=== PATIENT | female | born 1955 | race Caucasian/White ===

== ENCOUNTER 2019-07-21 12:22 | Inpatient (IN) | payer BC, OTHER ==
[2019-07-21] MEDS ORDERED: METOCLOPRAMIDE 5 MG/ML 2 ML VIAL IVP STA (12:51)
[2019-07-21] MEDS ORDERED: DIAZEPAM 5 MG/ML 2 ML INJ IVP STA (12:51)
[2019-07-21] MEDS ORDERED: MECLIZINE 25 MG TAB PO STA (12:51)
[2019-07-21] MEDS ORDERED: SODIUM CHLORIDE 0.9% 1,000 ML IV ONE ×2 (12:52→14:24)
--- NOTE | 2019-07-21 13:03 | ED ---
General Adult HPI - General Chief complaint: Weakness Stated complaint: Vertigo Time Seen by Provider: 07/21/19 12:25 Source: patient, EMS, RN notes reviewed, old records reviewed Mode of arrival: EMS Limitations: no limitations - History of Present Illness Initial comments: This is a 63-year-old female who presents emergency department with past medical history significant for TIA. Patient states today she was laying in bed and felt fine when she sat up the whole room started to spin and she became very nauseated and couldn't move without getting more dizzy. Patient states closer eyes doesn't help. Patient denies any headache. Patient denies any focal weakness or numbness. Patient denies any visual disturbance. Patient denies any speech disturbance. Patient denies any chest pain palpitations difficulty breathing first breath per patient denies any recent fever chills or cough. Patient denies abdominal pain patient denies nausea vomiting diarrhea. - Related Data Home Medications Medication Instructions Recorded Confirmed Diazepam [Valium] 5 mg PO HS 07/21/19 07/21/19 amLODIPine [Norvasc] 5 mg PO DAILY 07/21/19 07/21/19 Allergies Allergy/AdvReac Type Severity Reaction Status Date / Time latex Allergy Rash/Hives Verified 07/21/19 13:28 codeine AdvReac Vomiting Verified 07/21/19 13:28 Review of Systems ROS Statement: Those systems with pertinent positive or pertinent negative responses have been documented in the HPI. ROS Other: All systems not noted in ROS Statement are negative. Past Medical History Past Medical History: CVA/TIA, Hyperlipidemia, Hypertension Past Surgical History: Back Surgery Additional Past Surgical History / Comment(s): 4& 5 lumbar Smoking Status: Current every day smoker Past Alcohol Use History: None Reported Past Drug Use History: Marijuana General Exam - General Exam Comments Initial Comments: GENERAL: Patient is well-developed and well-nourished. Patient is nontoxic and well- hydrated and is in mild distress. ENT: Neck is soft and supple. No significant lymphadenopathy is noted. Oropharynx is clear. Moist mucous membranes. Neck has full range of motion without eliciting any pain. EYES: The sclera were anicteric and conjunctiva were pink and moist. Extraocular movements were intact and pupils were equal round and reactive to light. Eyelids were unremarkable. PULMONARY: Unlabored respirations. Good breath sounds bilaterally. No audible rales rhonchi or wheezing was noted. CARDIOVASCULAR: There is a regular rate and rhythm without any murmurs gallops or rubs. ABDOMEN: Soft and nontender with normal bowel sounds. SKIN: Skin is clear with no lesions or rashes and otherwise unremarkable. NEUROLOGIC: Patient is alert and oriented x3. Cranial nerves II through XII are grossly intact. Motor and sensory are also intact. Normal speech, volume and content. Symmetrical smile. Cerebellar testing finger to nose was normal bilaterally MUSCULOSKELETAL: Normal extremities with adequate strength and full range of motion. No lower extremity swelling or edema. No calf tenderness. LYMPHATICS: No significant lymphadenopathy is noted PSYCHIATRIC: Normal psychiatric evaluation. Limitations: no limitations Course Vital Signs 07/21/19 12:24 Temperature 98.5 F Pulse Rate 63 Respiratory 20 Rate Blood Pressure 143/73 O2 Sat by Pulse 100 Oximetry Medical Decision Making - Medical Decision Making EKG shows sinus bradycardia 56 bpm SC interval is 172 QRS is 88 QT interval 436 QTC is 420. Patient's EKG shows no ST segment elevation or depression. Patient got Reglan for the nausea. Patient got Antivert and Valium for the vertigo. Patient was unable to even sit up in bed. CT of the brain shows no acute abnormality. - Lab Data Result diagrams: 07/21/19 12:40 07/21/19 12:40 Lab Results 07/21/19 07/21/19 07/21/19 Range/Units 12:40 12:40 12:40 WBC 5.1 (3.8-10.6) k/uL RBC 4.92 (3.80-5.40) m/uL Hgb 13.6 (11.4-16.0) gm/dL Hct 43.2 (34.0-46.0) % MCV 87.8 (80.0-100.0) fL MCH 27.6 (25.0-35.0) pg MCHC 31.5 (31.0-37.0) g/dL RDW 13.1 (11.5-15.5) % Plt Count 160 (150-450) k/uL Neutrophils % 63 % Lymphocytes % 26 % Monocytes % 5 % Eosinophils % 4 % Basophils % 1 % Neutrophils # 3.2 (1.3-7.7) k/uL Lymphocytes # 1.3 (1.0-4.8) k/uL Monocytes # 0.2 (0-1.0) k/uL Eosinophils # 0.2 (0-0.7) k/uL Basophils # 0.0 (0-0.2) k/uL PT 11.1 (9.0-12.0) sec INR 1.1 (<1.2) APTT 22.5 (22.0-30.0) sec Sodium 139 (137-145) mmol/L Potassium 4.3 (3.5-5.1) mmol/L Chloride 109 H (98-107) mmol/L Carbon Dioxide 24 (22-30) mmol/L Anion Gap 6 mmol/L BUN 13 (7-17) mg/dL Creatinine 0.50 L (0.52-1.04) mg/dL Est GFR (CKD-EPI)AfAm >90 (>60 ml/min/1.73 sqM) Est GFR (CKD-EPI)NonAf >90 (>60 ml/min/1.73 sqM) Glucose 89 (74-99) mg/dL Calcium 9.8 (8.4-10.2) mg/dL Magnesium 1.9 (1.6-2.3) mg/dL Total Bilirubin 0.5 (0.2-1.3) mg/dL AST 50 H (14-36) U/L ALT 10 (4-34) U/L Alkaline Phosphatase 58 (38-126) U/L Troponin I (0.000-0.034) ng/mL Total Protein 6.9 (6.3-8.2) g/dL Albumin 4.1 (3.5-5.0) g/dL 07/21/19 Range/Units 12:40 WBC (3.8-10.6) k/uL RBC (3.80-5.40) m/uL Hgb (11.4-16.0) gm/dL Hct (34.0-46.0) % MCV (80.0-100.0) fL MCH (25.0-35.0) pg MCHC (31.0-37.0) g/dL RDW (11.5-15.5) % Plt Count (150-450) k/uL Neutrophils % % Lymphocytes % % Monocytes % % Eosinophils % % Basophils % % Neutrophils # (1.3-7.7) k/uL Lymphocytes # (1.0-4.8) k/uL Monocytes # (0-1.0) k/uL Eosinophils # (0-0.7) k/uL Basophils # (0-0.2) k/uL PT (9.0-12.0) sec INR (<1.2) APTT (22.0-30.0) sec Sodium (137-145) mmol/L Potassium (3.5-5.1) mmol/L Chloride (98-107) mmol/L Carbon Dioxide (22-30) mmol/L Anion Gap mmol/L BUN (7-17) mg/dL Creatinine (0.52-1.04) mg/dL Est GFR (CKD-EPI)AfAm (>60 ml/min/1.73 sqM) Est GFR (CKD-EPI)NonAf (>60 ml/min/1.73 sqM) Glucose (74-99) mg/dL Calcium (8.4-10.2) mg/dL Magnesium (1.6-2.3) mg/dL Total Bilirubin (0.2-1.3) mg/dL AST (14-36) U/L ALT (4-34) U/L Alkaline Phosphatase (38-126) U/L Troponin I <0.012 (0.000-0.034) ng/mL Total Protein (6.3-8.2) g/dL Albumin (3.5-5.0) g/dL Disposition Clinical Impression: Vertigo Disposition: ADMITTED IP TO THIS HOSP Referrals: Poli Maria MD [Primary Care Provider] - 1-2 days Time of Disposition: 14:23
[2019-07-21 13:22] LABS: Basophils % (A) 1 %; Eosinophils # (A) 0.2 k/uL (0-0.7); Eosinophils % (A) 4 %; HCT 43.2 % (34.0-46.0); HGB 13.6 gm/dL (11.4-16.0); Lymphocytes # (A) 1.3 k/uL (1.0-4.8); Lymphocytes % (A) 26 %; MCH 27.6 pg (25.0-35.0); MCHC 31.5 g/dL (31.0-37.0); MCV 87.8 fL (80.0-100.0); Mean Platelet Volume 8.7; Monocytes # (A) 0.2 k/uL (0-1.0); Monocytes % (A) 5 %; Neutrophils # (A) 3.2 k/uL (1.3-7.7); Neutrophils % (A) 63 %; Platelet Count 160 k/uL (150-450); RBC 4.92 m/uL (3.80-5.40); RDW 13.1 % (11.5-15.5); WBC 5.1 k/uL (3.8-10.6)
[2019-07-21 13:31] LABS: ALT 10 U/L (4-34); AST 50 U/L (14-36); African American GFR (CKD) >90 (>60 ml/min/1.73 sqM); Albumin 4.1 g/dL (3.5-5.0); Alkaline Phosphatase 58 U/L (38-126); Anion Gap 6 mmol/L; Blood Urea Nitrogen 13 mg/dL (7-17); Calcium 9.8 mg/dL (8.4-10.2); Carbon Dioxide 24 mmol/L (22-30); Chloride 109 mmol/L (98-107); Glucose 89 mg/dL (74-99); INR 1.1 (<1.2); Magnesium 1.9 mg/dL (1.6-2.3); Non-African American GFR(CKD) >90 (>60 ml/min/1.73 sqM); Partial Thromboplastin Time 22.5 sec (22.0-30.0); Potassium 4.3 mmol/L (3.5-5.1); Prothrombin Time 11.1 sec (9.0-12.0); Sodium 139 mmol/L (137-145); Total Bilirubin 0.5 mg/dL (0.2-1.3); Total Protein 6.9 g/dL (6.3-8.2)
--- NOTE | 2019-07-21 13:41 | CT ---
EXAMINATION TYPE: CT brain wo con DATE OF EXAM: 07/21/2019 COMPARISON: NONE HISTORY: Patient appears lethargic and weak. Has difficulty staying awake. CT DLP: 1094.4 mGycm Automated exposure control for dose reduction was used. FINDINGS: Central structures are midline. There is no evidence of hydrocephalus. No acute focal lesion, mass ef fect or midline shift is seen. I do not see evidence of intracranial blood Visualized portions of the paranasal sinuses and mastoids are clear. The bony calvarium is intact. IMPRESSION: NO ACUTE INTRACRANIAL ABNORMALITY.
--- NOTE | 2019-07-21 13:46 | XR ---
EXAMINATION TYPE: XR chest 2V DATE OF EXAM: 07/21/2019 HISTORY: Chest Pain. REFERENCE: NONE. FINDINGS: The lungs are clear. Pleural space are clear. Heart size upper limits of normal. IMPRESSION: NO ACUTE INTRATHORACIC ABNORMALITY.
--- NOTE | 2019-07-21 16:02 | P.HPIM ---
History of Present Illness H&P Date: 07/21/19 Chief Complaint: Dizziness Patient is 61-year-old female with a known history of hypertension, hyperlipidemia, history of CVA/TIA with no residual weakness and currently every day smoker came to ER with the complaints of dizziness and room spinning since he woke up from bed this morning. Patient says that she took her blood pressure medication after getting out of the bed and slept again for about 2 hours. She was trying to get out of the bed and sat up, the whole room started to spin and became very nauseated and dizzy. Could not move due to extreme dizziness. Den ies any headache. No fever no chills. Denied any focal weakness or numbness or tingling sensation. Denied any visual disturbance. No complaints of slurred speech are facial droop. Denied any chest pain or shortness of breath. No palpitations. No cough or sputum production. Does have nausea. No source of vomiting or abdominal pain noted no dysuria or hematuria. No diarrhea. Patient called her and was brought to the hospital. Patient says that she had fullness in her right ear and felt like fluid about 2 days back. Patient says that she had TIA several years back with temporary loss of vision. No residual weakness. CT head showed no acute intracranial abnormality. Chest x-ray showed no acute cardiopulmonary process. EKG showed normal sinus rhythm with atrial arrhythmia. Laboratory data reviewed. Review of Systems Constitutional: Patient denies any fever or chills . No generalized weakness or weight loss. Abdomen: Patient denied nausea vomiting and diarrhea and abdominal pain. Cardiovascular: Patient denies any chest pain or short of breath no palpitations. Respiratory: patient denied any cough is from production. No shortness of breath Neurologic: Patient denied any numbness or tingling headache. Does have dizzi ness and room spinning Musculoskeletal: Patient denies any complaints of joint swelling or deformity. Skin: Negative Psychiatric: Negative Endocrine: No heat or cold intolerance. No recent weight gain. Genitourinary: No dysuria or hematuria. All other 14 point ROS negative except the above Past Medical History Past Medical History: CVA/TIA, Hyperlipidemia, Hypertension Past Surgical History: Back Surgery Additional Past Surgical History / Comment(s): 4& 5 lumbar Smoking Status: Current every day smoker Past Alcohol Use History: None Reported Past Drug Use History: Marijuana Medications and Allergies Home Medications Medication Instructions Recorded Confirmed Type Diazepam [Valium] 5 mg PO HS 07/21/19 07/21/19 History amLODIPine [Norvasc] 5 mg PO DAILY 07/21/19 07/21/19 History Allergies Allergy/AdvReac Type Severity Reaction Status Date / Time latex Allergy Rash/Hives Verified 07/21/19 13:28 codeine AdvReac Vomiting Verified 07/21/19 13:28 Physical Exam Vitals: Vital Signs Temp Pulse Resp BP Pulse Ox 07/21/19 12:24 98.5 F 63 20 143/73 100 Intake and Output 07/21/19 07/21/19 07/21/19 06:59 14:59 22:59 Other: Weight 62.596 kg PHYSICAL EXAMINATION: Patient is lying in the bed comfortably, no acute distress, awake alert and oriented.. HEENT: Normocephalic. Neck is supple. Pupils reactive. Nostrils clear. Oral cavity is moist. Ears reveal no drainage. Neck reveals no JVD, carotid bruits, or thyromegaly. CHEST EXAMINATION: Trachea is central. Symmetrical expansion. Lung vitale clear to auscultation and percussion. CARDIAC: Normal S1, S2 with no gallops. No murmurs ABDOMEN: Soft. Bowel sounds normal. No organomegaly. No abdominal bruits. Extremities: reveal no edema. No clubbing or cyanosis Neurologically awake, alert, oriented x3 with well-coordinated movements. No focal deficits noted Skin: No rash or skin lesions. Psychiatric: Coperative. Nonsuicidal Musculoskeletal: No joint swelling or deformity. Normal range of motion. Results CBC & Chem 7: 07/21/19 12:40 07/21/19 12:40 Labs: Abnormal Lab Results - Last 24 Hours (Table) 07/21/19 Range/Units 12:40 Chloride 109 H (98-107) mmol/L Creatinine 0.50 L (0.52-1.04) mg/dL AST 50 H (14-36) U/L Thrombosis Risk Factor Assmnt - DVT/VTE Prophylaxis DVT/VTE Prophylaxis: Pharmacologic Prophylaxis ordered Assessment and Plan Assessment: Dizziness and room spinning due to benign positional vertigo. History of TIA Hypertension controlled Hyperlipidemia Currently everyday smoker DVT prophylaxis with heparin subcu Plan: Patient will be continued on gentle hydration, meclizine when necessary for vertigo. CT head is negative. Continue symptomatic management and follow closely. Consider neurology evaluation. Further recommendations based on the clinical course. Discussed with the patient and her at bedside in detail. Time with Patient: Greater than 30
[2019-07-21] MEDS: MECLIZINE 25 MG TAB PO PRN (20:12)
[2019-07-21] MEDS: HEPARIN SODIUM,PORCINE 5,000 UNIT/ML 1 ML VIAL SQ SCH (20:12)
[2019-07-22] MEDS: HEPARIN SODIUM,PORCINE 5,000 UNIT/ML 1 ML VIAL SQ SCH ×2 (08:40→20:46)
[2019-07-22] MEDS: amLODIPine 5 MG TAB PO SCH (08:40)
[2019-07-22] MEDS: SODIUM CHLORIDE 0.9% 1,000 ML IV SCH (12:06)
[2019-07-22] MEDS: MECLIZINE 25 MG TAB PO PRN (20:46)
[2019-07-22] MEDS ORDERED: ONDANSETRON 4 MG/2 ML VIAL IVP PRN (23:31)
--- NOTE | 2019-07-22 23:32 | P.PN ---
Subjective Progress Note Date: 07/22/19 Principal diagnosis: Dizziness Patient is 61-year-old female with a known history of hypertension, hyperlipidemia, history of CVA/TIA with no residual weakness and currently every day smoker came to ER with the complaints of dizziness and room spinning since he woke up from bed this morning. Patient says that she took her blood pressure medication after getting out of the bed and slept again for about 2 hours. She was trying to get out of the bed and sat up, the whole room started to spin and became very nauseated and dizzy. Could not move due to extreme dizziness. Den ies any headache. No fever no chills. Denied any focal weakness or numbness or tingling sensation. Denied any visual disturbance. No complaints of slurred speech are facial droop. Denied any chest pain or shortness of breath. No palpitations. No cough or sputum production. Does have nausea. No source of vomiting or abdominal pain noted no dysuria or hematuria. No diarrhea. Patient called her and was brought to the hospital. Patient says that she had fullness in her right ear and felt like fluid about 2 days back. Patient says that she had TIA several years back with temporary loss of vision. No residual weakness. CT head showed no acute intracranial abnormality. Chest x-ray showed no acute cardiopulmonary process. EKG showed normal sinus rhythm with atrial arrhythmia. Laboratory data reviewed. 07/22/2019 Patient is currently lying in the bed comfortably. Still having dizziness and does spinning when trying to get out of bed or moving her head. Patient was nauseated last night and had an episode of vomiting 1. Tolerating oral diet slowly now. No complaints of fever or chills. No complaints of chest pain or shortness of breath. Current medications reviewed. Objective - Vital Signs Vital signs: Vital Signs Temp 98.2 F 07/22/19 11:25 Pulse 56 L 07/22/19 11:25 Resp 16 07/22/19 11:25 BP 127/62 07/22/19 11:25 Pulse Ox 97 07/22/19 11:25 Intake & Output 07/21/19 07/22/19 07/22/19 18:59 06:59 18:59 Intake Total 1320 Balance 1320 Weight 62.596 kg Intake: Intake, IV Titration 600 Amount Sodium Chloride 0.9% 1, 600 000 ml @ 75 mls/hr IV . [id number] ONE Rx#:[id number] Oral 720 Other: Voiding Method Toilet Bedpan Bedpan # Voids 2 - Exam PHYSICAL EXAMINATION: Patient is lying in the bed comfortably, no acute distress, awake alert and oriented.. HEENT: Normocephalic. Neck is supple. Pupils reactive. Nostrils clear. Oral cavity is moist. Ears reveal no drainage. Neck reveals no JVD, carotid bruits, or thyromegaly. CHEST EXAMINATION: Trachea is central. Symmetrical expansion. Lung vitale clear to auscultation and percussion. CARDIAC: Normal S1, S2 with no gallops. No murmurs ABDOMEN: Soft. Bowel sounds normal. No organomegaly. No abdominal bruits. Extremities: reveal no edema. No clubbing or cyanosis Neurologically awake, alert, oriented x3 with well-coordinated movements. No focal deficits noted Skin: No rash or skin lesions. Psychiatric: Coperative. Nonsuicidal Musculoskeletal: No joint swelling or deformity. Normal range of motion. - Labs CBC & Chem 7: 07/21/19 12:40 07/21/19 12:40 Assessment and Plan Assessment: Dizziness and room spinning due to benign paroxysmal positional vertigo. History of TIA Hypertension controlled Hyperlipidemia Currently everyday smoker DVT prophylaxis with heparin subcu Plan: Patient will be continued on gentle hydration, meclizine when necessary for vertigo. CT head is negative. Continue symptomatic management and follow closely. Consider neurology evaluation. Further recommendations based on the clinical course. Time with Patient: Greater than 30
[2019-07-23] MEDS: amLODIPine 5 MG TAB PO SCH (08:59)
[2019-07-23] MEDS: FAMOTIDINE 20 MG TAB PO SCH ×2 (08:59→20:58)
[2019-07-23] MEDS: SODIUM CHLORIDE 0.9% 1,000 ML IV SCH (09:00)
[2019-07-23] MEDS: HEPARIN SODIUM,PORCINE 5,000 UNIT/ML 1 ML VIAL SQ SCH ×2 (09:00→20:58)
--- NOTE | 2019-07-23 13:50 | P.GSCN ---
History of Present Illness Consult date: 07/23/19 Reason for Consult: Feels like something is stuck in her lap band Requesting physician: Audra Hurt History of present illness: CHIEF COMPLAINT: Feels like something is stuck in her lap band HISTORY OF PRESENT ILLNESS: 63-year-old female who is currently admitted to the hospital secondary to dizziness. General surgery was consulted secondary to patient feeling like she has food stuck in her lap band. Patient examined at the bedside and Dr. Castro. She states she ate roast beef yesterday and feels like it is stuck in her band. Patient reports she had her lap band many years ago and thinks he may have been in 2001. She has not had any follow-up in the bariatric center in approximately 10 years. PAST MEDICAL HISTORY: See list. PAST SURGICAL HISTORY: See list. SOCIAL HISTORY: No illicit drug use. REVIEW OF SYSTEMS: CONSTITUTIONAL: Denies fever or chills. HEENT: Denies blurred vision, vision changes, or eye pain. Denies hemoptysis CARDIOVASCULAR: Denies chest pain or pressure. RESPIRATORY: No shortness of breath. GASTROINTESTINAL: Refer to HPI for pertinent findings HEMATOLOGIC: Denies bleeding disorders. GENITOURINARY: Denies any blood in urine. SKIN: Denies pruitis. Denies rash. PHYSICAL EXAM: VITAL SIGNS: Reviewed. GENERAL: Well-developed in no acute distress. HEENT: No sclera icterus. Extraocular movements grossly intact. Moist buccal mucosa. Head is atraumatic, normocephalic. ABDOMEN: Soft. Nondistended. Nontender. NEUROLOGIC: Alert and oriented. Cranial nerves II through XII grossly intact. ASSESSMENT: 1. Possible food stuck in gastric band 2. History of lap band, 2001? PLAN: Dr. Castro removed 4 mL of saline from patient's lap band at the bedside Patient may have clear liquids only for today and resume regular diet tomorrow Patient to follow-up outpatient in the bariatric center Nurse practitioner note has been reviewed by physician. Signing provider agrees with the documented findings, assessment, and plan of care. Past Medical History Past Medical History: CVA/TIA, Hyperlipidemia, Hypertension History of Any Multi-Drug Resistant Organisms: None Reported Past Surgical History: Back Surgery Additional Past Surgical History / Comment(s): 4& 5 lumbar Past Anesthesia/Blood Transfusion Reactions: No Reported Reaction Smoking Status: Current every day smoker Past Alcohol Use History: None Reported Past Drug Use History: Marijuana - Past Family History Brother(s) Family Medical History: Diabetes Mellitus Father Family Medical History: Cancer Additional Family Medical History / Comment(s): Pancreatic CA Mother Family Medical History: Diabetes Mellitus Medications and Allergies Home Medications Medication Instructions Recorded Confirmed Type Diazepam [Valium] 5 mg PO HS 07/21/19 07/21/19 History amLODIPine [Norvasc] 5 mg PO DAILY 07/21/19 07/21/19 History Allergies Allergy/AdvReac Type Severity Reaction Status Date / Time latex Allergy Rash/Hives Verified 07/21/19 13:28 codeine AdvReac Vomiting Verified 07/21/19 13:28 Surgical - Exam Vital Signs Temp Pulse Resp BP Pulse Ox 98.5 F 63 20 143/73 100 07/21/19 12:24 07/21/19 12:24 07/21/19 12:24 07/21/19 12:24 07/21/19 12:24 Results - Labs 07/21/19 12:40 07/21/19 12:40
[2019-07-23] MEDS: MECLIZINE 25 MG TAB PO PRN (19:58)
[2019-07-23 20:26] VITALS: RESP 16
[2019-07-23] MEDS: ASPIRIN 81 MG PO SCH (20:58)
--- NOTE | 2019-07-23 22:43 | US ---
EXAMINATION TYPE: US carotid duplex BILAT DATE OF EXAM: 07/23/2019 COMPARISON: CT, MR CLINICAL HISTORY: Vertigo. Vertigo. Hypertension. Current smoker. EXAM MEASUREMENTS: RIGHT: Peak Systolic Velocity (PSV) cm/sec ----- Right CCA: 74.3 ----- Right ICA: 106.5 ----- Right ECA: 85.0 ICA/CCA ratio: 1.4 RIGHT: End Diastole cm/sec ----- Right CCA: 23.7 ----- Right ICA: 34.0 ----- Right ECA: 11.3 LEFT: Peak Systolic Velocity (PSV) cm/sec ----- Left CCA: 76.2 ----- Left ICA: 97.5 ----- Left ECA: 84.5 ICA/CCA ratio: 1.3 LEFT: End Diastole cm/sec ----- Left CCA: 23.8 ----- Left ICA: 36.6 ----- Left ECA: 14.6 VERTEBRALS (direction of flow): Right Vertebral: Antegrade Left Vertebral: Antegrade Rhythm: Normal Intimal thickening seen bilaterally. Plaque is seen bilateral carotid bifurcations. No elevated veloc ities obtained at this time. No significant stenosis seen at this time by ultrasound. -Hypoechoic area with hyperechoic center seen left neck measurin.0 x 0.9 x 0.7 cm. *Incidental finding: Isoechoic area with hypoechoic borders and vascularity seen within right thyroid lobe measurin.4 x 0.9 x 0.7 cm. IMPRESSION: There is bilateral plaque formation and estimated less than 30% stenosis in both interna l carotid arteries. There is antegrade flow in the vertebral arteries. There is left side cervical ly mph node that measures 20 x 7 mm with normal echogenicity. Criteria for Assigning % of Stenosis / Diameter reduction (Estimation based on the indirect measurements of the internal carotid artery velocities (ICA PSV). 1. Normal (no stenosis)=ICA PSV < 125 cm/s: ratio < 2.0: ICA EDV<40 cm/s. 2. Less than 50% stenosis=ICA PSV < 125 cm/s: ratio < 2.0: ICA EDV<40 cm/s. 3. 50 to 69% stenosis=ICA PSV of 125 to 230 cm/s: ration 2.0 ? 4.0: ICA EDV 40-100 cm/s. 4. Greater than 70% stenosis to near occlusion= ICA PSV > 230 cm/s: ratio > 4.0: ICA EDV > 100 cm/s. 5. Near occlusion= ICA PSV velocities may be low or undetectable: variable ratio and ICA EDV. 6. Total occlusion=unable to detect flow.
[2019-07-24] MEDS: SODIUM CHLORIDE 0.9% 1,000 ML IV SCH ×2 (05:08→23:21)
[2019-07-24] MEDS: amLODIPine 5 MG TAB PO SCH (08:22)
[2019-07-24] MEDS: ASPIRIN 81 MG PO SCH (08:22)
[2019-07-24] MEDS: HEPARIN SODIUM,PORCINE 5,000 UNIT/ML 1 ML VIAL SQ SCH ×2 (08:22→20:59)
[2019-07-24] MEDS: FAMOTIDINE 20 MG TAB PO SCH ×2 (08:22→20:59)
--- NOTE | 2019-07-24 11:13 | P.PN ---
Subjective Progress Note Date: 07/24/19 CHIEF COMPLAINT: Feels like something is stuck in her lap band HISTORY OF PRESENT ILLNESS: Patient examined at the bedside with Dr. Castro. Patient had 4 mL of saline removed from her gastric banding yesterday. She states she feels much better and does not feel as if there is any food stuck today. PHYSICAL EXAM: VITAL SIGNS: Reviewed. GENERAL: Well-developed in no acute distress. HEENT: No sclera icterus. Extraocular movements grossly intact. Moist buccal mucosa. Head is atraumatic, normocephalic. ABDOMEN: Soft. Nondistended. Nontender. NEUROLOGIC: Alert and oriented. Cranial nerves II through XII grossly intact. ASSESSMENT: 1. Possible food stuck in gastric band 2. History of lap band, 2001? PLAN: Advance diet Patient to follow-up outpatient in the bariatric center for possible gastric band fill We will sign off. Please reconsult if needed. Nurse practitioner note has been reviewed by physician. Signing provider agrees with the documented findings, assessment, and plan of care. Objective - Vital Signs Vital signs: Vital Signs Temp 97.6 F 07/24/19 04:45 Pulse 61 07/24/19 04:45 Resp 16 07/24/19 08:05 BP 134/66 07/24/19 04:45 Pulse Ox 96 07/24/19 04:45 Intake & Output 07/23/19 07/24/19 07/24/19 18:59 06:59 18:59 Other: Voiding Method Bedpan Bedpan # Voids 1 1 - Labs CBC & Chem 7: 07/21/19 12:40 07/21/19 12:40
[2019-07-24 11:59] LABS: Basophils % (A) 1 %; Eosinophils # (A) 0.3 k/uL (0-0.7); Eosinophils % (A) 7 %; HCT 40.8 % (34.0-46.0); HGB 13.1 gm/dL (11.4-16.0); Lymphocytes # (A) 1.4 k/uL (1.0-4.8); Lymphocytes % (A) 33 %; MCH 28.2 pg (25.0-35.0); MCHC 32.2 g/dL (31.0-37.0); MCV 87.5 fL (80.0-100.0); Mean Platelet Volume 8.6; Monocytes # (A) 0.3 k/uL (0-1.0); Monocytes % (A) 7 %; Neutrophils # (A) 2.2 k/uL (1.3-7.7); Neutrophils % (A) 50 %; Platelet Count 165 k/uL (150-450); RBC 4.67 m/uL (3.80-5.40); RDW 13.1 % (11.5-15.5); WBC 4.3 k/uL (3.8-10.6)
[2019-07-24 12:05] LABS: African American GFR (CKD) >90 (>60 ml/min/1.73 sqM); Anion Gap 1 mmol/L; Blood Urea Nitrogen 8 mg/dL (7-17); Calcium 9.5 mg/dL (8.4-10.2); Carbon Dioxide 33 mmol/L (22-30); Chloride 107 mmol/L (98-107); Glucose 74 mg/dL (74-99); Non-African American GFR(CKD) >90 (>60 ml/min/1.73 sqM); Potassium 4.5 mmol/L (3.5-5.1); Sodium 141 mmol/L (137-145)
--- NOTE | 2019-07-24 13:06 | P.CNNES ---
History of Present Illness Consult date: 07/23/19 Requesting physician: Symone Tran Reason for Consult: Dizziness History of Present Illness: Patient is a 63-year-old female, who arrived to the hospital on 07/21/2019 at 12:22 PM for evaluation of vertigo. Patient states that on 07/21/2019, she woke up in the morning at 6 AM, took her blood pressure medications and then went back to bed. At 10 to 10:30 AM, she woke up and heard her outside in the yard. Patient's window is next to her bed. She tried to get up and had got up only 30, when she suddenly developed acute onset of vertigo and everything started spinning. She laid back and symptoms eased a little. However with any movement, she would have vertigo and then she would f eel nauseous. The symptoms would get much worse when she would roll over to the left. As the symptoms persisted, patient came to the ER. Patient underwent Computed tomography scan of the head is normal. On my review, all visualized paranasal sinuses are completely clear. External auditory canal also appears normal with no excessive cerumen. No intraparenchymal abnormality. Chest x-ray showed no acute intrathoracic abnormality. EKG was sinus bradycardia with sinus arrhythmia. Patient's CBC, PT/PTT, Chem-7, hepatic panel, troponin, Scott virus PCR all normal or negative. Patient states that in the last 48 hours her symptoms are easing up, but she is still very dizzy, whenever she tries to get up, or rolls over to the left side. She is fine when she is on her right side. She tries to avoid any excessive movements. Patient denies any focal neurological symptoms like numbness tin gling, slurred speech facial droop or problem with her vision. Patient states that on Monday, 2 days before onset of this vertigo, she noticed some tinnitus in the right ear, sharp pain and felt like a pressure in the right ear. She thought that she was coming up with the wax, tried to use Q-tips without any wax coming out. She denies any loss of hearing. Patient states that in around 1991 or 1992, while she was in [place], she had a similar episode of vertigo at work. She felt very nauseous. She went home, was sitting on the floor, with her arm up on the chair, when she felt the roof was flipping and she started throwing up. The episode lasted for an hour. She saw a physician who diagnosed her with possible migraine. Patient states that 10 years ago she had a small stroke confirmed on brain imaging. She had a transient vision loss in one eye. She was also dizzy with it. Besides these 2 episodes mentioned above, she never had any dizzy episodes. Patient has history of smoking a quarter pack per day off and on since age 12. She denies alcohol. She has hypertension, takes Norvasc for the last 12 years. Denies diabetes. Review of Systems As mentioned detailed in the HPI. She has some shoulder issues on the right. History of knee surgery. Denies any abdominal pain. No fever or chills. All other review of systems unremarkable. Past Medical History Past Medical History: CVA/TIA, Hyperlipidemia, Hypertension History of Any Multi-Drug Resistant Organisms: None Reported Past Surgical History: Back Surgery Additional Past Surgical History / Comment(s): 4& 5 lumbar Past Anesthesia/Blood Transfusion Reactions: No Reported Reaction Smoking Status: Current every day smoker Past Alcohol Use History: None Reported Past Drug Use History: Marijuana - Past Family History Brother(s) Family Medical History: Diabetes Mellitus Father Family Medical History: Cancer Additional Family Medical History / Comment(s): Pancreatic CA Mother Family Medical History: Diabetes Mellitus Medications and Allergies Home Medications Medication Instructions Recorded Confirmed Type Diazepam [Valium] 5 mg PO HS 07/21/19 07/21/19 History amLODIPine [Norvasc] 5 mg PO DAILY 07/21/19 07/21/19 History Allergies Allergy/AdvReac Type Severity Reaction Status Date / Time latex Allergy Rash/Hives Verified 07/21/19 13:28 codeine AdvReac Vomiting Verified 07/21/19 13:28 Physical Examination - Vital Signs Vital Signs: Vital Signs Temp Pulse Pulse Resp BP Pulse Ox 07/23/19 11:45 98 F 63 18 159/73 98 07/23/19 05:00 97.7 F 51 L 16 133/56 96 07/23/19 00:00 18 07/22/19 21:00 98.3 F 66 18 131/59 96 Intake and Output 07/23/19 07/23/19 07/23/19 06:59 14:59 22:59 Intake Total 400 Balance 400 Intake: Intake, IV Titration 400 Amount Sodium Chloride 0.9% 1, 400 000 ml @ 50 mls/hr IV . Q20H [facility] Rx#:[id number] Other: Voiding Method Bedpan # Voids 4 1 On examination patient is a late middle aged female, appears younger than her age. She is alert and awake, fully oriented. Speech and language functions are normal. She is holding her neck stiff, and is obviously avoiding any movements. Attention, concentration and fund of knowledge is adequate. On cranial nerve examination pupils are round and reactive to light, visual vitale are full on confrontation. Extraocular muscles are intact. Patient does have nystagmus when she gets dizzy. Her symptoms of dizziness can be reproduced on her sitting up or rolling over onto the left side. Face is symmetric, tongue protrudes the midline. Hearing is normal. Shoulder shrug normal. On muscle strength testing there is no pronator drift and the strength is completely normal in the arms and legs distally and proximally. Reflexes are 2+ and plantars downgoing. Sensory touch is equal. No ataxia for [id number] or [id number] testing. Tone and bulk of muscles normal. Gait deferred. There is no carotid bruit or murmur. Peripheral pulses present. Abdomen soft nontender. Results - Laboratory Findings CBC and BMP: 07/24/19 11:34 07/24/19 11:34 Abnormal Lab Findings: Abnormal Labs 07/21/19 12:40 Chloride 109 H Creatinine 0.50 L AST 50 H Assessment and Plan Assessment: * 63-year-old female admitted with vertigo. Probable viral labyrinthitis. * History of similar vertigo in 1991, but was much shorter lasting. * Tobacco use. * Hypertension * Hyperlipidemia Plan: * Patient probably has labyrinthitis. Continue meclizine 25 mg 3 times a day when necessary and Zofran as needed. * If symptoms persist, Medrol Dosepak could be considered. * We will check carotid Doppler to rule out carotid stenosis. * We will start aspirin due to her history of CVA in the past, and having multiple vascular risk factors. * Symptoms hopefully will improve in the next 24-48 hours. * If patient develops positional vertigo, then vestibular rehabilitation could be considered. * Recommend tobacco cessation.
[2019-07-24] MEDS: MECLIZINE 25 MG TAB PO PRN (21:03)
--- NOTE | 2019-07-24 22:10 | P.PN ---
Subjective Progress Note Date: 07/24/19 Patient states she is feeling much better. Patient able to walk, get out of bed. She is still concerned looking downwards, as it can make her dizzy. Otherwise she can function much better. No focal symptoms. Objective - Vital Signs Vital signs: Vital Signs Temp 98.1 F 07/24/19 20:46 Pulse 55 L 07/24/19 20:46 Resp 16 07/24/19 20:46 BP 148/69 07/24/19 20:46 Pulse Ox 99 07/24/19 20:46 Intake & Output 07/24/19 07/24/19 07/25/19 06:59 18:59 06:59 Other: Voiding Method Bedpan Bedpan # Voids 1 1 1 - Exam Patient's mental status, speech-language functions and cranial nerves are normal. Muscle strength normal. No ataxia. Patient walks with a normal base. Patient can walk tandem without any difficulty. Cerebellar functions intact. - Labs CBC & Chem 7: 07/24/19 11:34 07/24/19 11:34 Labs: Abnormal Lab Results - Last 24 Hours (Table) 07/24/19 Range/Units 11:34 Carbon Dioxide 33 H (22-30) mmol/L Assessment and Plan Assessment: * 63-year-old female admitted with vertigo. Probable viral labyrinthitis. * History of similar vertigo in 1991, but was much shorter lasting. * Tobacco use. * Hypertension * Hyperlipidemia Plan: * Patient probably has labyrinthitis. Continue meclizine 25 mg 3 times a day when necessary and Zofran as needed. Symptoms have much improved. * Carotid Doppler showed bilateral plaque formation and estimated less than 30% stenosis in both ICAs. There is antegrade for in the vertebral arteries. There is left side cervical lymph node that measures 20 x 7 mm with normal echogenicity. This to be addressed by patient's PCP. * Continue aspirin 81 mg daily due to her history of CVA in the past, and having multiple vascular risk factors. * If patient develops positional vertigo, then vestibular rehabilitation could be considered. * Recommend tobacco cessation. * Neurologically clear for discharge.
[2019-07-25] MEDS: amLODIPine 5 MG TAB PO SCH (08:40)
[2019-07-25] MEDS: ASPIRIN 81 MG PO SCH (08:40)
[2019-07-25] MEDS: FAMOTIDINE 20 MG TAB PO SCH (08:40)
[2019-07-25] MEDS: HEPARIN SODIUM,PORCINE 5,000 UNIT/ML 1 ML VIAL SQ SCH (08:40)
[2019-07-25] MEDS: MECLIZINE 25 MG TAB PO PRN (08:43)
--- NOTE | 2019-07-25 10:22 | P.PN ---
Subjective Progress Note Date: 07/23/19 Principal diagnosis: Dizziness Patient is 61-year-old female with a known history of hypertension, hyperlipidemia, history of CVA/TIA with no residual weakness and currently every day smoker came to ER with the complaints of dizziness and room spinning since he woke up from bed this morning. Patient says that she took her blood pressure medication after getting out of the bed and slept again for about 2 hours. She was trying to get out of the bed and sat up, the whole room started to spin and became very nauseated and dizzy. Could not move due to extreme dizziness. Den ies any headache. No fever no chills. Denied any focal weakness or numbness or tingling sensation. Denied any visual disturbance. No complaints of slurred speech are facial droop. Denied any chest pain or shortness of breath. No palpitations. No cough or sputum production. Does have nausea. No source of vomiting or abdominal pain noted no dysuria or hematuria. No diarrhea. Patient called her and was brought to the hospital. Patient says that she had fullness in her right ear and felt like fluid about 2 days back. Patient says that she had TIA several years back with temporary loss of vision. No residual weakness. CT head showed no acute intracranial abnormality. Chest x-ray showed no acute cardiopulmonary process. EKG showed normal sinus rhythm with atrial arrhythmia. Laboratory data reviewed. 07/22/2019 Patient is currently lying in the bed comfortably. Still having dizziness and does spinning when trying to get out of bed or moving her head. Patient was nauseated last night and had an episode of vomiting 1. Tolerating oral diet slowly now. No complaints of fever or chills. No complaints of chest pain or shortness of breath. 07/23/2019 Patient is currently lying in the bed but complains of dizziness when writing to get up and moves her head. Neurology was consulted. Carotid duplex was ordered. Otherwise patient does have nausea and vomiting and abdominal discomfort. General surgery has seen the patient and fluid was taken off from the LAP-BAND. Patient feels more comfortable now. Patient is being continued on meclizine and symptomatic management. Tolerating oral diet slowly. No compressive chest pain or shortness of breath. Current medications reviewed. Objective - Vital Signs Vital signs: Vital Signs Temp 98 F 07/23/19 11:45 Pulse 63 05/12/20 11:45 Resp 18 07/23/19 11:45 BP 159/73 07/23/19 11:45 Pulse Ox 98 07/23/19 11:45 Intake & Output 07/23/19 07/23/19 07/24/19 06:59 18:59 06:59 Intake Total 640 Balance 640 Intake: Intake, IV Titration 400 Amount Sodium Chloride 0.9% 1, 400 000 ml @ 50 mls/hr IV . Q20H [facility] Rx#:[id number] Oral 240 Other: Voiding Method Bedpan # Voids 4 1 - Exam PHYSICAL EXAMINATION: Patient is lying in the bed comfortably, no acute distress, awake alert and oriented.. HEENT: Normocephalic. Neck is supple. Pupils reactive. Nostrils clear. Oral cavity is moist. Ears reveal no drainage. Neck reveals no JVD, carotid bruits, or thyromegaly. CHEST EXAMINATION: Trachea is central. Symmetrical expansion. Lung vitale clear to auscultation and percussion. CARDIAC: Normal S1, S2 with no gallops. No murmurs ABDOMEN: Soft. Bowel sounds normal. No organomegaly. No abdominal bruits. Extremities: reveal no edema. No clubbing or cyanosis Neurologically awake, alert, oriented x3 with well-coordinated movements. No focal deficits noted Skin: No rash or skin lesions. Psychiatric: Coperative. Nonsuicidal Musculoskeletal: No joint swelling or deformity. Normal range of motion. - Labs CBC & Chem 7: 07/24/19 11:34 07/24/19 11:34 Assessment and Plan Assessment: Dizziness and room spinning due to benign paroxysmal positional vertigo. Possible food stuck in gastric band. Status post 4 mL of LAP-BAND fluid removal. History of TIA Hypertension controlled Hyperlipidemia Currently everyday smoker DVT prophylaxis with heparin subcu Plan: Patient will be continued on gentle hydration, meclizine when necessary for vertigo. CT head is negative. Continue symptomatic management and follow chantal davis. neurology is on board.. Further recommendations based on the clinical course. Time with Patient: Greater than 30
--- NOTE | 2019-07-25 10:23 | P.PN ---
Subjective Progress Note Date: 07/24/19 Principal diagnosis: Dizziness Patient is 61-year-old female with a known history of hypertension, hyperlipidemia, history of CVA/TIA with no residual weakness and currently every day smoker came to ER with the complaints of dizziness and room spinning since he woke up from bed this morning. Patient says that she took her blood pressure medication after getting out of the bed and slept again for about 2 hours. She was trying to get out of the bed and sat up, the whole room started to spin and became very nauseated and dizzy. Could not move due to extreme dizziness. Den ies any headache. No fever no chills. Denied any focal weakness or numbness or tingling sensation. Denied any visual disturbance. No complaints of slurred speech are facial droop. Denied any chest pain or shortness of breath. No palpitations. No cough or sputum production. Does have nausea. No source of vomiting or abdominal pain noted no dysuria or hematuria. No diarrhea. Patient called her and was brought to the hospital. Patient says that she had fullness in her right ear and felt like fluid about 2 days back. Patient says that she had TIA several years back with temporary loss of vision. No residual weakness. CT head showed no acute intracranial abnormality. Chest x-ray showed no acute cardiopulmonary process. EKG showed normal sinus rhythm with atrial arrhythmia. Laboratory data reviewed. 07/22/2019 Patient is currently lying in the bed comfortably. Still having dizziness and does spinning when trying to get out of bed or moving her head. Patient was nauseated last night and had an episode of vomiting 1. Tolerating oral diet slowly now. No complaints of fever or chills. No complaints of chest pain or shortness of breath. 07/23/2019 Patient is currently lying in the bed but complains of dizziness when writing to get up and moves her head. Neurology was consulted. Carotid duplex was ordered. Otherwise patient does have nausea and vomiting and abdominal discomfort. General surgery has seen the patient and fluid was taken off from the LAP-BAND. Patient feels more comfortable now. Patient is being continued on meclizine and symptomatic management. Tolerating oral diet slowly. No compressive chest pain or shortness of breath. 07/24/2019 Patient states she is feeling much better. Patient able to walk, get out of bed. still has dizziness been trying to get out of bed. No focal symptoms.currently being continued on meclizine and Zofran as needed. Seen by neurology. Current medications reviewed. Objective - Vital Signs Vital signs: Vital Signs Temp 98.1 F 07/24/19 20:46 Pulse 55 L 07/24/19 20:46 Resp 16 07/24/19 20:46 BP 148/69 07/24/19 20:46 Pulse Ox 99 07/24/19 20:46 Intake & Output 07/24/19 07/24/19 07/25/19 06:59 18:59 06:59 Other: Voiding Method Bedpan Bedpan # Voids 1 1 1 - Exam PHYSICAL EXAMINATION: Patient is lying in the bed comfortably, no acute distress, awake alert and oriented.. HEENT: Normocephalic. Neck is supple. Pupils reactive. Nostrils clear. Oral cavity is moist. Ears reveal no drainage. Neck reveals no JVD, carotid bruits, or thyromegaly. CHEST EXAMINATION: Trachea is central. Symmetrical expansion. Lung vitale clear to auscultation and percussion. CARDIAC: Normal S1, S2 with no gallops. No murmurs ABDOMEN: Soft. Bowel sounds normal. No organomegaly. No abdominal bruits. Extremities: reveal no edema. No clubbing or cyanosis Neurologically awake, alert, oriented x3 with well-coordinated movements. No focal deficits noted Skin: No rash or skin lesions. Psychiatric: Coperative. Nonsuicidal Musculoskeletal: No joint swelling or deformity. Normal range of motion. - Labs CBC & Chem 7: 07/24/19 11:34 07/24/19 11:34 Labs: Abnormal Lab Results - Last 24 Hours (Table) 07/24/19 Range/Units 11:34 Carbon Dioxide 33 H (22-30) mmol/L Assessment and Plan Assessment: Dizziness and room spinning due to benign paroxysmal positional vertigo. Possible food stuck in gastric band. Status post 4 mL of LAP-BAND fluid removal. History of TIA Hypertension controlled Hyperlipidemia Currently everyday smoker DVT prophylaxis with heparin subcu Plan: Patient will be continued on gentle hydration, meclizine when necessary for vertigo. CT head is negative. Continue symptomatic management and follow closely. neurology is on board.. Further recommendations based on the clinical course. Time with Patient: Greater than 30
[2019-07-25 11:38] VITALS: BP 169/72; PULSE 49; TEMP 97.5
== END 2019-07-25 13:20 | disposition home or self-care (01) | DRG 149 ==
LOC: EC 12:22 → 5NMEDONC 14:24 → OBSVTOIN 07-23 13:32
PROVIDERS: ADMIT Internal Medicine; ATTEND Internal Medicine
DX: H81.10 Benign paroxysmal vertigo, unspecified ear (principal); K95.09 Other complications of gastric band procedure; E78.5 Hyperlipidemia, unspecified; I10 Essential (primary) hypertension; Z11.59 Encounter for screening for other viral diseases; F17.210 Nicotine dependence, cigarettes, uncomplicated; Z71.6 Tobacco abuse counseling; Z79.899 Other long term (current) drug therapy; Z86.73 Personal history of transient ischemic attack (TIA), and cerebral infarction without residual deficits; Z98.890 Other specified postprocedural states; Z88.5 Allergy status to narcotic agent; Z91.040 Latex allergy status; Z83.3 Family history of diabetes mellitus; Z80.0 Family history of malignant neoplasm of digestive organs
CPT/HCPCS: 36415; 70450; 71046; 80048; 80053; 83735; 84484; 85025; 85610; 85730; 87635; 93005; 93880; 96361; 96374; 96375; 99285

== ENCOUNTER → 2019-07-29 | Outpatient (CLI) | payer BC ==
[2019-07-29 13:14] VITALS: RESP 16; TEMP 98.3; BMI 24.7
--- NOTE | 2019-07-29 13:57 | P.HPBAR ---
Bariatric H&P - History & Physicial H&P Date: 07/29/19 History & Physicial: Visit/CC: requesting a fill Patient initial contact: Initial weight: Initial weight in pounds: Height: 5 ft 3 in Initial BMI: Last weight: Current weight: 63.458 kg Current weight in pounds: 139.90 Current BMI: 24.7 [place] body weight (based on NIH guidelines): 52.163 kg Excess body weight loss: The patient is a 63 year-old F who presents for Bariatric Assessment. Patient had her LAP-BAND M.D. last week. She is currently undergoing treatment for vertigo. Her dysphagia has improved. She is requesting a fill. Past Medical History Past Medical History: CVA/TIA, Hyperlipidemia, Hypertension History of Any Multi-Drug Resistant Organisms: None Reported Past Surgical History: Back Surgery Additional Past Surgical History / Comment(s): 4& 5 lumbar Past Anesthesia/Blood Transfusion Reactions: No Reported Reaction Smoking Status: Current every day smoker - Past Family History Brother(s) Family Medical History: Diabetes Mellitus Father Family Medical History: Cancer Additional Family Medical History / Comment(s): Pancreatic CA Mother Family Medical History: Diabetes Mellitus Surgical - Exam Vital Signs Temp Resp 98.3 F 16 07/29/19 12:58 07/29/19 12:58 - General well developed, well nourished, no distress - Eyes PERRL - ENT normal pinna - Neck no masses - Respiratory normal expansion - Cardiovascular Rhythm: regular - Abdomen Abdomen: soft, non tender Bariatric Assessment & Plan Plan: Patient LAP-BAND was adjusted. She had 2 mL added to her band. She was not drink without difficulty. She'll follow-up in 4 weeks. Bariatric Checklist Checklist: Plan: Checklist: EGD: 1. Hiatal hernia: 2. H. Pylori: HgbA1c: Vitamin D: Smoking: Current every day smoker Primary care physician referral: [facility] Psychiatry clearance: Cardiology clearance: Sleep study: Diet journal: VTE risk score: VTE risk level: Rehab needs at discharge:
== END | disposition home or self-care (01) ==
LOC: BARWHC3 12:49
PROVIDERS: ATTEND Surgery
DX: Z46.51 Encounter for fitting and adjustment of gastric lap band (principal); Z98.84 Bariatric surgery status; F17.200 Nicotine dependence, unspecified, uncomplicated
CPT/HCPCS: 99212

== ENCOUNTER → 2019-08-26 | Outpatient (CLI) | payer BC ==
[2019-08-26 13:48] VITALS: BP 156/72; PULSE 81; RESP 16; TEMP 98.3; BMI 26.7
--- NOTE | 2019-08-26 15:43 | P.HPBAR ---
Bariatric H&P - History & Physicial H&P Date: 08/26/19 History & Physicial: Visit/CC: band f/u Patient initial contact: Initial weight: 115.212 kg Initial weight in pounds: 254.00 Height: 5 ft 3 in Initial BMI: 44.9 Last weight: Current weight: 68.492 kg Current weight in pounds: 151.00 Current BMI: 26.7 [place] body weight (based on NIH guidelines): 52.163 kg Excess body weight loss: 74.1% The patient is a 64 year-old F who presents for Bariatric Assessment. Patient is requesting a fill of her LAP-BAND. She currently feels hungry. Past Medical History Past Medical History: CVA/TIA, Hyperlipidemia, Hypertension History of Any Multi-Drug Resistant Organisms: None Reported Past Surgical History: Back Surgery Additional Past Surgical History / Comment(s): 4& 5 lumbar Past Anesthesia/Blood Transfusion Reactions: No Reported Reaction Past Psychological History: No Psychological Hx Reported Smoking Status: Current every day smoker Past Alcohol Use History: None Reported Past Drug Use History: Marijuana Additional Drug Use History / Comment(s): Patient uses marijuana at bedtime to help her sleep. - Past Family History Brother(s) Family Medical History: Diabetes Mellitus Father Family Medical History: Cancer Additional Family Medical History / Comment(s): Pancreatic CA Mother Family Medical History: Diabetes Mellitus Surgical - Exam Vital Signs Temp Pulse Resp BP 98.3 F 81 16 156/72 08/26/19 13:44 08/26/19 13:44 08/26/19 13:44 08/26/19 13:44 - General well developed, well nourished, no distress - Eyes PERRL - ENT normal pinna - Neck no masses - Respiratory normal expansion - Cardiovascular Rhythm: regular - Abdomen Abdomen: soft, non tender Bariatric Assessment & Plan Plan: Patient LAP-BAND was adjusted. She had 1 mL added to her pain. She currently is 4 mL her choosing drink water without difficulty. Bariatric Checklist Checklist: Plan: Checklist: EGD: 1. Hiatal hernia: 2. H. Pylori: HgbA1c: Vitamin D: Smoking: Current every day smoker Primary care physician referral: [facility] Psychiatry clearance: Cardiology clearance: Sleep study: Diet journal: VTE risk score: VTE risk level: Rehab needs at discharge:
== END | disposition home or self-care (01) ==
LOC: BARWHC3 12:35
PROVIDERS: ATTEND Surgery
DX: Z46.51 Encounter for fitting and adjustment of gastric lap band (principal); F17.200 Nicotine dependence, unspecified, uncomplicated
CPT/HCPCS: 99212

== ENCOUNTER → 2019-09-23 | Outpatient (CLI) | payer BC ==
[2019-09-23 13:48] VITALS: BP 135/78; PULSE 70; TEMP 98.1; BMI 27.1
--- NOTE | 2019-09-23 14:12 | P.HPBAR ---
Bariatric H&P - History & Physicial H&P Date: 09/23/19 History & Physicial: Visit/CC: lap band follow up Patient initial contact: Initial weight: 115.212 kg Initial weight in pounds: 254.00 Height: 5 ft 3 in Initial BMI: 44.9 Last weight: Current weight: 69.4 kg Current weight in pounds: 153.00 Current BMI: 27.1 [place] body weight (based on NIH guidelines): 52.163 kg Excess body weight loss: 72.6% The patient is a 64 year-old F who presents for Bariatric Assessment. Patient resents today for lab band follow appeared she is requesting a fill of her band. She currently feels hungry. Past Medical History Past Medical History: CVA/TIA, Hyperlipidemia, Hypertension History of Any Multi-Drug Resistant Organisms: None Reported Past Surgical History: Back Surgery Additional Past Surgical History / Comment(s): 4& 5 lumbar Past Anesthesia/Blood Transfusion Reactions: No Reported Reaction Past Psychological History: No Psychological Hx Reported Smoking Status: Current every day smoker Past Alcohol Use History: None Reported Past Drug Use History: Marijuana Additional Drug Use History / Comment(s): Patient uses marijuana at bedtime to help her sleep. - Past Family History Brother(s) Family Medical History: Diabetes Mellitus Father Family Medical History: Cancer Additional Family Medical History / Comment(s): Pancreatic CA Mother Family Medical History: Diabetes Mellitus Surgical - Exam Vital Signs Temp Pulse BP 98.1 F 70 135/78 09/23/19 13:27 09/23/19 13:27 09/23/19 13:27 - General well developed, well nourished, no distress - Eyes PERRL - ENT normal pinna - Neck no masses - Respiratory normal expansion - Cardiovascular Rhythm: regular - Abdomen Abdomen: soft Bariatric Assessment & Plan Plan: Patient's lap band was adjusted. She had 0.5 mL added to the band. She denies 3.5 mL in the band. She'll follow-up in 4 weeks. Bariatric Checklist Checklist: Plan: Checklist: EGD: 1. Hiatal hernia: 2. H. Pylori: HgbA1c: Vitamin D: Smoking: Current every day smoker Primary care physician referral: [facility] Psychiatry clearance: Cardiology clearance: Sleep study: Diet journal: VTE risk score: VTE risk level: Rehab needs at discharge:
== END | disposition home or self-care (01) ==
LOC: BARWHC3 12:41
PROVIDERS: ATTEND Surgery
DX: Z46.51 Encounter for fitting and adjustment of gastric lap band (principal); F17.200 Nicotine dependence, unspecified, uncomplicated
CPT/HCPCS: 99212

== ENCOUNTER 2019-10-24 08:32 | Day surgery (SDC) | payer BC ==
[2019-10-22 13:40] VITALS: BMI 25.8
[~2019-10-24 08:32] MED LIST: LACTATED RINGERS 1,000 ML IV SCH; ONDANSETRON 4 MG/2 ML VIAL IVP PRN
[2019-10-24 08:58] VITALS: RESP 16; TEMP 98
[2019-10-24] MEDS ORDERED: LIDOCAINE 1% (10MG/ML) FOR IV START INTRADERMA ONE (09:01)
[2019-10-24] MEDS ORDERED: LIDOCAINE 1% INJ 10MG/ML (20 ML MDV) ONE (09:22)
[2019-10-24] MEDS ORDERED: PROPOFOL 10 MG/ML 20 ML VIAL IV ONE (09:22)
--- NOTE | 2019-10-24 09:28 | P.GSHP ---
History of Present Illness H&P Date: 10/24/19 Chief Complaint: GI bleed This a 64-year-old female evidence today for colonoscopy. She had issues with GI bleed. Past Medical History Past Medical History: CVA/TIA, Hypertension, Osteoarthritis (OA) Additional Past Medical History / Comment(s): states questionable TIA 5-8 yrs ago-symptoms of nausea, headache ,vision changes., July 2019 she had similar symptoms and was diagnosed with vertigo., hx of ruptured disc with surgery, thyroid nodule (right), occasional blood in stool, arthritis knees, pt had lap band done approx 20 yrs ago-follows with Dr Castro., states she crushes pills., citrus causes heartburn. History of Any Multi-Drug Resistant Organisms: None Reported Past Surgical History: Back Surgery, Bariatric Surgery, Orthopedic Surgery Additional Past Surgical History / Comment(s): Lap Band (20 yrs ago ? 1999), right knee meniscus surgery. Past Anesthesia/Blood Transfusion Reactions: Postoperative Nausea & Vomiting (PONV) Past Psychological History: No Psychological Hx Reported Smoking Status: Current some day smoker Past Alcohol Use History: Rare Additional Past Alcohol Use History / Comment(s): started smoking age 12, quit smoking 3 months ago-but occasionally has one. Past Drug Use History: Marijuana Additional Drug Use History / Comment(s): occasional marijuana - Past Family History Brother(s) Family Medical History: Diabetes Mellitus Father Family Medical History: Cancer Additional Family Medical History / Comment(s): Pancreatic CA Mother Family Medical History: Diabetes Mellitus Medications and Allergies Home Medications Medication Instructions Recorded Confirmed Type Multivit-Min/FA/Lycopen/Lutein 1 each PO DAILY 10/22/19 10/24/19 History [Centrum Silver Tablet] amLODIPine BESYLATE 5 mg PO DAILY 10/22/19 10/24/19 History Allergies Allergy/AdvReac Type Severity Reaction Status Date / Time latex Allergy Rash/Hives Verified 10/24/19 08:51 codeine AdvReac Vomiting Verified 10/24/19 08:51 Surgical - Exam Vital Signs Temp Pulse Resp BP Pulse Ox 98 F 51 L 16 131/74 99 10/24/19 08:54 10/24/19 08:54 10/24/19 08:54 10/24/19 08:54 10/24/19 08:54 - General well developed, well nourished, no distress - Eyes PERRL - ENT normal pinna - Neck no masses - Respiratory normal expansion - Cardiovascular Rhythm: regular - Abdomen Abdomen: soft, non tender Assessment and Plan Assessment: GI bleed. We'll perform colonoscopy.
--- NOTE | 2019-10-24 09:43 | P.OP ---
Date of Procedure: 10/24/19 Preoperative Diagnosis: GI bleed Postoperative Diagnosis: Left colon polyp Rectal polyp Diverticulosis Procedure(s) Performed: Colonoscopy Anesthesia: MAC Surgeon: Eusebio Castro Pathology: other (Rectal polyp, left colon polyp) Condition: stable Disposition: PACU Description of Procedure: The patient's placed on the endoscopy table lateral position. She received IV sedation. Digital rectal exam performed which revealed no abnormalities. The flexible colonoscope was then placed anus passed throughout the entire colon. The ileocecal valve was visualized. Cecum, ascending and transverse colon appeared normal. In the descending colon there was mild diverticular changes. There was a sessile polyp this removed with a forcep. The sigmoid colon there is more diverticular changes seen. In the rectum there was a good polyp was removed with the snare. Scope withdrawn for patient remained and rectum appeared normal. Scope was brought patient.
[2019-10-24 10:04] VITALS: BP 120/72; PULSE 54
== END 2019-10-24 10:24 | disposition home or self-care (01) ==
LOC: ORWHC2ENDO 08:32
PROVIDERS: ATTEND Surgery
DX: D12.8 Benign neoplasm of rectum (principal); K63.5 Polyp of colon; K57.30 Diverticulosis of large intestine without perforation or abscess without bleeding; I10 Essential (primary) hypertension; K21.9 Gastro-esophageal reflux disease without esophagitis; M19.90 Unspecified osteoarthritis, unspecified site; Z98.84 Bariatric surgery status; Z86.73 Personal history of transient ischemic attack (TIA), and cerebral infarction without residual deficits; Z87.891 Personal history of nicotine dependence; Z91.040 Latex allergy status; Z88.5 Allergy status to narcotic agent; Z79.899 Other long term (current) drug therapy; Z98.890 Other specified postprocedural states; Z83.3 Family history of diabetes mellitus; Z80.0 Family history of malignant neoplasm of digestive organs
CPT/HCPCS: 88305; 45380; 45385; J2001; J2704

== ENCOUNTER → 2020-11-13 | Outpatient (CLI) | payer BC ==
--- NOTE | 2020-11-13 07:32 | US ---
EXAMINATION TYPE: US thyroid st tissue head/neck DATE OF EXAM: 11/13/2020 COMPARISON: NONE CLINICAL HISTORY: E04.1 Thyroid Nodule. follow up exam GLAND SIZE: Right Lobe: 4.9 x 1.1 x 1.7 cm Overall Parenchyma: heterogenous Left Lobe: 4.8 x 1.1 x 1.8 cm Overall Parenchyma: heterogeneous Isthmus Thickness: 0.2 cm NODULES RIGHT: # of nodules measured on right: 1 1. 1.2 X 1.1 x 0.8 cm, mid , solid or almost completely solid, isoechoic nodule, which is wider shirley n tall, with smooth margins, without echogenic foci. TR 3 Prior size: 1.4 x 0.9 x 0.7 cm - seen on carotid US 2019, previous thyroids and [place] LEFT: # of nodules measured on left: 0 ISTHMUS: # of nodules measured in the isthmus: 0 Bilateral neck scanned, no evidence of lymphadenopathy. IMPRESSION: Mildly suspicious right lobe thyroid nodule. Consider follow-up 2017 ACR TI-RADS LEVEL: TR-RADS 3 - Mildly Suspicious: Follow if > 1.5 cm, FNA if > 2.5 cm *Highest TI-RADS level nodule reported
== END | disposition home or self-care (01) ==
LOC: RADUSWWP 06:59
PROVIDERS: ATTEND Otolaryngology
DX: E04.1 Nontoxic single thyroid nodule (principal)
CPT/HCPCS: 76536

== ENCOUNTER → 2021-11-08 | Outpatient (CLI) | payer MEDICARE ==
[2021-11-08 14:05] VITALS: BP 126/74; PULSE 90; TEMP 98.5; BMI 25.7
--- NOTE | 2021-11-22 15:16 | P.HPBAR ---
Bariatric H&P - History & Physicial H&P Date: 11/08/21 History & Physicial: Visit/CC: band slipped Patient initial contact: Initial weight: 115.212 kg Initial weight in pounds: 254.00 Height: 5 ft 3 in Initial BMI: 44.9 Last weight: Current weight: 65.771 kg Current weight in pounds: 145.00 Current BMI: 25.7 [place] body weight (based on NIH guidelines): 52.163 kg Excess body weight loss: 78.4% The patient is a 66 year-old F who presents for Bariatric Assessment. Patient presents today for LAP-BAND follow-up. Patient underwent recent laparoscopic ostectomy. This was done in an outside hospital. She had what sounds like a biliary leak which required ERCP with stent placement. She's had some complaints of epigastric pain. She also has complaints of some minimal GERD. Past Medical History Past Medical History: CVA/TIA, Hyperlipidemia, Hypertension History of Any Multi-Drug Resistant Organisms: None Reported Past Surgical History: Back Surgery, Cholecystectomy Additional Past Surgical History / Comment(s): 4& 5 lumbar Past Anesthesia/Blood Transfusion Reactions: No Reported Reaction Past Psychological History: No Psychological Hx Reported Smoking Status: Unknown if ever smoked Past Alcohol Use History: None Reported Past Drug Use History: Marijuana Additional Drug Use History / Comment(s): Patient uses marijuana at bedtime to help her sleep. - Past Family History Brother(s) Family Medical History: Diabetes Mellitus Father Family Medical History: Cancer Additional Family Medical History / Comment(s): Pancreatic CA Mother Family Medical History: Diabetes Mellitus Surgical - Exam Vital Signs Temp Pulse BP 98.5 F 90 126/74 11/08/21 14:01 11/08/21 14:01 11/08/21 14:01 - General well developed, well nourished, no distress - Eyes PERRL - ENT normal pinna - Neck no masses - Respiratory normal expansion - Cardiovascular Rhythm: regular - Abdomen Abdomen: soft, non tender Bariatric Assessment & Plan Plan: Patient's GERD is minimal user. Patient is status post lap mirtha and subsequent ERCP. The patient will follow-up in 2 weeks once she has healed from her surgery. If she has significant. She may require adjustment of her band. Bariatric Checklist Checklist: Plan: Checklist: EGD: 1. Hiatal hernia: 2. H. Pylori: HgbA1c: Vitamin D: Smoking: Current every day smoker Primary care physician referral: [facility] Psych[facility] clearance: Cardiology clearance: Sleep study: Diet journal: VTE risk score: VTE risk level: Rehab needs at discharge:
== END ==
LOC: BARWHC3 13:24
PROVIDERS: ATTEND Surgery
DX: Z09 Encounter for follow-up examination after completed treatment for conditions other than malignant neoplasm (principal); K21.9 Gastro-esophageal reflux disease without esophagitis; Z86.73 Personal history of transient ischemic attack (TIA), and cerebral infarction without residual deficits; E78.5 Hyperlipidemia, unspecified; I10 Essential (primary) hypertension; Z98.84 Bariatric surgery status; F17.200 Nicotine dependence, unspecified, uncomplicated; Z91.040 Latex allergy status; Z88.5 Allergy status to narcotic agent
CPT/HCPCS: 99211

== ENCOUNTER → 2022-01-10 | Outpatient (CLI) | payer MEDICARE ==
[2022-01-10 13:05] VITALS: BP 157/83; PULSE 71; RESP 16; TEMP 98.3; BMI 26.7
--- NOTE | 2022-02-07 13:35 | P.HPBAR ---
Bariatric H&P - History & Physicial H&P Date: 01/10/22 History & Physicial: Visit/CC: Band F/U Patient initial contact: Initial weight: 115.212 kg Initial weight in pounds: 254.00 Height: 5 ft 3 in Initial BMI: 44.9 Last weight: Current weight: 68.492 kg Current weight in pounds: 151.00 Current BMI: 26.7 [place] body weight (based on NIH guidelines): 52.163 kg Excess body weight loss: 74.1% The patient is a 66 year-old F who presents for Bariatric Assessment. Patient resents today for LAP-BAND follow-up. She's requesting a fill of her band. She currently feels hungry. Past Medical History Past Medical History: CVA/TIA, Hyperlipidemia, Hypertension History of Any Multi-Drug Resistant Organisms: None Reported Past Surgical History: Back Surgery, Cholecystectomy Additional Past Surgical History / Comment(s): 4& 5 lumbar. Infection after cholecystectomy Past Anesthesia/Blood Transfusion Reactions: No Reported Reaction Past Psychological History: No Psychological Hx Reported Smoking Status: Unknown if ever smoked Past Alcohol Use History: None Reported Past Drug Use History: Marijuana Additional Drug Use History / Comment(s): Patient uses marijuana at bedtime to help her sleep. - Past Family History Brother(s) Family Medical History: Diabetes Mellitus Father Family Medical History: Cancer Additional Family Medical History / Comment(s): Pancreatic CA Mother Family Medical History: Diabetes Mellitus Surgical - Exam Vital Signs Temp Pulse Resp BP 98.3 F 71 16 157/83 01/10/22 13:03 01/10/22 13:03 01/10/22 13:03 01/10/22 13:03 - General well developed, well nourished, no distress - Eyes PERRL - ENT normal pinna - Neck no masses - Respiratory normal expansion - Cardiovascular Rhythm: regular - Abdomen Abdomen: soft, non tender Bariatric Assessment & Plan Plan: Morbid obesity. Patient's LAP-BAND was adjusted with 0.3 mL added to her band. She is 3.3 in the band. She'll follow-up in 4 weeks. Bariatric Checklist Checklist: Plan: Checklist: EGD: 1. Hiatal hernia: 2. H. Pylori: HgbA1c: Vitamin D: Smoking: Current every day smoker Primary care physician referral: [facility] Psychiatry clearance: Cardiology clearance: Sleep study: Diet journal: VTE risk score: VTE risk level: Rehab needs at discharge:
== END ==
LOC: BARWHC3 12:49
PROVIDERS: ATTEND Surgery
DX: Z48.815 Encounter for surgical aftercare following surgery on the digestive system (principal); Z98.84 Bariatric surgery status; E66.01 Morbid (severe) obesity due to excess calories; Z68.26 Body mass index [BMI] 26.0-26.9, adult; Z88.5 Allergy status to narcotic agent; Z91.040 Latex allergy status; F17.200 Nicotine dependence, unspecified, uncomplicated
CPT/HCPCS: 99212

== ENCOUNTER → 2022-02-07 | Outpatient (CLI) | payer MEDICARE ==
[2022-02-07 12:54] VITALS: BP 127/78; PULSE 67; TEMP 98; BMI 26.7
--- NOTE | 2022-02-07 13:12 | P.HPBAR ---
Bariatric H&P - History & Physicial H&P Date: 02/07/22 History & Physicial: Visit/CC: follow up Patient initial contact: Initial weight: 115.212 kg Initial weight in pounds: 254.00 Height: 5 ft 3 in Initial BMI: 44.9 Last weight: Current weight: 68.492 kg Current weight in pounds: 151.00 Current BMI: 26.7 [place] body weight (based on NIH guidelines): 52.163 kg Excess body weight loss: 74.1% The patient is a 66 year-old F who presents for Bariatric Assessment. The patient has some mild complaints of epigastric pain and some minimal GERD. Her weight is unchanged from her last visit. She currently weighs 151 pounds. She denies any dysphagia and vomiting since her last fill. Patient has a complicated surgical history with recent laparoscopically cholecystectomy and subsequent bile leak at [facility]. Patient denies any dysphagia or throwing up currently. Past Medical History Past Medical History: CVA/TIA, Hyperlipidemia, Hypertension History of Any Multi-Drug Resistant Organisms: None Reported Past Surgical History: Back Surgery, Cholecystectomy Additional Past Surgical History / Comment(s): 4& 5 lumbar. Infection after cholecystectomy Past Anesthesia/Blood Transfusion Reactions: No Reported Reaction Past Psychological History: No Psychological Hx Reported Smoking Status: Unknown if ever smoked Past Alcohol Use History: None Reported Past Drug Use History: Marijuana Additional Drug Use History / Comment(s): Patient uses marijuana at bedtime to help her sleep. - Past Family History Brother(s) Family Medical History: Diabetes Mellitus Father Family Medical History: Cancer Additional Family Medical History / Comment(s): Pancreatic CA Mother Family Medical History: Diabetes Mellitus Surgical - Exam Vital Signs Temp Pulse BP 98 F 67 127/78 02/07/22 12:52 02/07/22 12:52 02/07/22 12:52 - General well developed, well nourished, no distress - Eyes PERRL - ENT normal pinna - Neck no masses - Respiratory normal expansion - Cardiovascular Rhythm: regular - Abdomen Abdomen: soft, non tender Bariatric Assessment & Plan Plan: Patient's GERD is minimal elevated observed. Patient has no significant dysphagia. Her LAP-BAND was not adjusted. She'll follow-up in 4 weeks. Bariatric Checklist Checklist: Plan: Checklist: EGD: 1. Hiatal hernia: 2. H. Pylori: HgbA1c: Vitamin D: Smoking: Current every day smoker Primary care physician referral: [facility] Psychiatry clearance: Cardiology clearance: Sleep study: Diet journal: VTE risk score: VTE risk level: Rehab needs at discharge:
== END ==
LOC: BARWHC3 12:36
PROVIDERS: ATTEND Surgery
DX: Z48.815 Encounter for surgical aftercare following surgery on the digestive system (principal); Z98.84 Bariatric surgery status; E66.01 Morbid (severe) obesity due to excess calories; Z68.26 Body mass index [BMI] 26.0-26.9, adult; Z91.040 Latex allergy status; Z88.5 Allergy status to narcotic agent; F17.200 Nicotine dependence, unspecified, uncomplicated
CPT/HCPCS: 99211

== ENCOUNTER 2022-02-28 13:54 | Inpatient (IN) | payer MEDICARE ==
[2022-02-28] MEDS ORDERED: METOCLOPRAMIDE 5 MG/ML 2 ML VIAL IVP STA (14:21)
[2022-02-28] MEDS ORDERED: SCOPOLAMINE 1 MG/72 HR PATCH TRANSDERM STA (14:26)
[2022-02-28] MEDS ORDERED: MECLIZINE 25 MG TAB PO PRN (15:15)
[2022-02-28] MEDS ORDERED: ACETAMINOPHEN TAB 325 MG TAB PO PRN (15:16)
[2022-02-28] MEDS ORDERED: BUTALB/APAP/CAFF 50-325-40MG TAB PO PRN (15:16)
--- NOTE | 2022-02-28 15:16 | ED ---
General Adult HPI - General Chief complaint: Dizziness Stated complaint: vertigo Time Seen by Provider: 02/28/22 13:55 Source: patient, EMS, RN notes reviewed, old records reviewed Mode of arrival: EMS Limitations: no limitations - History of Present Illness Initial comments: This is a 66-year-old female who presents emergency Department complaining of vertigo. Patient states she had vertigo approximately 2 years ago and she had to be admitted to the hospital for a few days. Patient states symptoms again are extremely bad it started last evening. Patient states became very nauseated did vomit once last evening but today she just remains nauseated but has not vomited. Patient states she has posterior headache which she states this is exactly the kind headache she had in the past when she had vertigo. Patient denies any chest pain patient denies palpitations. Patient denies any recent fever chills or cough. Patient denies any neck stiffness. Patient states she has to lay with her eyes shut are also room was moving so much it makes her sick to her stomach. - Related Data Home Medications Medication Instructions Recorded Confirmed Multivit-Min/FA/Lycopen/Lutein 1 each PO DAILY 10/22/19 01/10/22 [Centrum Silver Tablet] amLODIPine BESYLATE 5 mg PO DAILY 10/22/19 01/10/22 Allergies Allergy/AdvReac Type Severity Reaction Status Date / Time latex Allergy Rash/Hives Verified 10/24/19 08:51 codeine AdvReac Vomiting Verified 10/24/19 08:51 Review of Systems ROS Statement: Those systems with pertinent positive or pertinent negative responses have been documented in the HPI. ROS Other: All systems not noted in ROS Statement are negative. Past Medical History Past Medical History: CVA/TIA, Hyperlipidemia, Hypertension History of Any Multi-Drug Resistant Organisms: None Reported Past Surgical History: Back Surgery, Cholecystectomy Additional Past Surgical History / Comment(s): 4& 5 lumbar. Infection after cholecystectomy Past Anesthesia/Blood Transfusion Reactions: No Reported Reaction Past Psychological History: No Psychological Hx Reported Smoking Status: Former smoker, Unknown if ever smoked Past Alcohol Use History: None Reported Past Drug Use History: Marijuana - Past Family History Brother(s) Family Medical History: Diabetes Mellitus Father Family Medical History: Cancer Additional Family Medical History / Comment(s): Pancreatic CA Mother Family Medical History: Diabetes Mellitus General Exam - General Exam Comments Initial Comments: GENERAL: Patient is well-developed and well-nourished. Patient is nontoxic and well- hydrated and is in moderate distress. ENT: Neck is soft and supple. No significant lymphadenopathy is noted. Oropharynx is clear. Moist mucous membranes. Neck has full range of motion without eliciting any pain. EYES: The sclera were anicteric and conjunctiva were pink and moist. Extraocular movements were intact and pupils were equal round and reactive to light. Eyelids were unremarkable. PULMONARY: Unlabored respirations. Good breath sounds bilaterally. No audible rales rhonchi or wheezing was noted. CARDIOVASCULAR: There is a regular rate and rhythm without any murmurs gallops or rubs. ABDOMEN: Soft and nontender with normal bowel sounds. SKIN: Skin is clear with no lesions or rashes and otherwise unremarkable. NEUROLOGIC: Patient is alert and oriented x3. Cranial nerves II through XII are grossly intact. Motor and sensory are also intact. Normal speech, volume and content. Symmetrical smile. Cerebellar exam grossly intact bilaterally with finger to nose testing. MUSCULOSKELETAL: Normal extremities with adequate strength and full range of motion. LYMPHATICS: No significant lymphadenopathy is noted PSYCHIATRIC: Normal psychiatric evaluation. Limitations: no limitations Course Vital Signs 02/28/22 13:55 Temperature 98.6 F Pulse Rate 50 L Respiratory 18 Rate Blood Pressure 159/83 O2 Sat by Pulse 100 Oximetry Medical Decision Making - Medical Decision Making EKG was interpreted by me. EKG shows sinus bradycardia at 45 bpm CA interval is 165 QRS is 93 QT intervals 4:30 QTC is 384. Patient's EKG shows no ST segment elevation or depression. I spoke with Dr. montelongo he came down and saw the patient in the ER prior to all the labs being back and he was in agreement with the management. He did accept admission of the patient admitted the patient to Dr. rabago. Disposition Clinical Impression: Bradycardia, Acute severe vertigo Disposition: ADMITTED IP TO THIS HOSP Referrals: Poli Maria MD [Primary Care Provider] - 1-2 days Time of Disposition: 15:22
[2022-02-28 16:13] LABS: Basophils % (A) 1 %; Eosinophils # (A) 0.2 k/uL (0-0.7); Eosinophils % (A) 3 %; HCT 42.9 % (34.0-46.0); Lymphocytes # (A) 1.9 k/uL (1.0-4.8); Lymphocytes % (A) 30 %; MCH 27.3 pg (25.0-35.0); MCHC 32.6 g/dL (31.0-37.0); MCV 83.7 fL (80.0-100.0); Mean Platelet Volume 8.6; Monocytes # (A) 0.3 k/uL (0-1.0); Monocytes % (A) 5 %; Neutrophils # (A) 3.7 k/uL (1.3-7.7); Neutrophils % (A) 59 %; Platelet Count 184 k/uL (150-450); RBC 5.13 m/uL (3.80-5.40); RDW 13.6 % (11.5-15.5); WBC 6.2 k/uL (3.8-10.6)
[2022-02-28 16:16] LABS: INR 1.1 (<1.2); Partial Thromboplastin Time 22.9 sec (22.0-30.0)
[2022-02-28 16:21] LABS: ALT 13 U/L (4-34); AST 31 U/L (14-36); African American GFR (CKD) >90 (>60 ml/min/1.73 sqM); Albumin 4.3 g/dL (3.5-5.0); Alkaline Phosphatase 73 U/L (38-126); Anion Gap 7 mmol/L; Bilirubin, Delta 0.2 mg/dL (0.0-0.2); Bilirubin,Unconjugated 0.4 mg/dL (0.0-1.1); Blood Urea Nitrogen 13 mg/dL (7-17); Calcium 9.7 mg/dL (8.4-10.2); Carbon Dioxide 27 mmol/L (22-30); Chloride 106 mmol/L (98-107); Glucose 83 mg/dL (74-99); Magnesium 1.9 mg/dL (1.6-2.3); Non-African American GFR(CKD) >90 (>60 ml/min/1.73 sqM); Sodium 140 mmol/L (137-145); Total Bilirubin 0.6 mg/dL (0.2-1.3); Total Protein 7.4 g/dL (6.3-8.2)
[2022-02-28] MEDS ORDERED: SODIUM CHLORIDE 0.9% 1,000 ML IV ONE (16:27)
[2022-02-28 17:38] LABS: Erythrocyte Sedimentation Rate 13 mm/hr (0-20)
[2022-02-28] MEDS: METOCLOPRAMIDE 5 MG/ML 2 ML VIAL IVP SCH (18:06)
--- NOTE | 2022-02-28 18:12 | CT ---
EXAMINATION TYPE: CT brain wo con DATE OF EXAM: 02/28/2022 COMPARISON: 07/21/2019 HISTORY: c/o vertigo CT DLP: 1149.4 mGycm Automated exposure control for dose reduction was used. Images obtained of the brain with no contrast. The ventricles are normal size. There is no mass effect nor midline shift. No sign of intracranial he morrhage. The calvarium is intact. No evidence of cerebral edema. There is large empty sella. Skull b ase is intact. IMPRESSION: Negative unenhanced head CT scan. No change.
[2022-02-28] MEDS ORDERED: diazePAM 5 MG TAB PO PRN (19:07)
--- NOTE | 2022-02-28 19:17 | P.HPIM ---
History of Present Illness This is a pleasant 66 years old female with past medical history of hypertension, hyperlipidemia and CVA/TIA, history of lap band with Dr. Todd. Her PCP is Dr. Maria Patient also has history of vertigo on 2019, that lasted 4 days at that time is been evaluated including Dr. Ho ENT service and resolved Yesterday she woke up in the morning and immediately felt like there was any with left temporal side pain, her pain felt like 9/10 in severity associated also some pain in the back of the head, patient denies blurred vision or double vision, yesterday she vomited a little bit in the morning, but not currently. H e also denies any change in voice is or tinnitus, no abnormal discharge, no recent history of head trauma She tried several meclizine and pain medication to help so today she decided to come to the emergency room She denies other urinary symptoms, no chest pain or dyspnea or coughing, no vomiting today, no abdominal pain, she has little diarrhea yesterday which was. She is used to smoke and quit 3 months ago, no alcohol and chooses gummies of marijuana While here in the hospital her Vitas looks stable and patient is afebrile Lab profile is unremarkable, CBC, BMP, liver enzymes CT of the brain is negative for acute process, for example no tumor no sinusitis EKG: Sinus bradycardia at [address]-T changes Patient on admission acid scopolamine, IV Valium and reglan Review of Systems Review of systems CONSTITUTIONAL: No fever, no malaise, no fatigue. HEENT: No recent visual problems or hearing problems. Denied any sore throat. CARDIOVASCULAR: No orthopnea, PND, no palpitations, no syncope. PULMONARY: No shortness of breath, no cough, no hemoptysis. GASTROINTESTINAL: No diarrhea, no nausea, no vomiting, no abdominal pain. No rmoactive bowel sounds. NEUROLOGICAL: no weakness, no numbness. HEMATOLOGICAL: Denies any bleeding or petechiae. GENITOURINARY: Denies any burning micturition, frequency, or urgency. MUSCULOSKELETAL/RHEUMATOLOGICAL: Denies any joint pain, swelling, or any muscle pain. ENDOCRINE: Denies any polyuria or polydipsia. Past Medical History Past Medical History: CVA/TIA, Hyperlipidemia, Hypertension History of Any Multi-Drug Resistant Organisms: None Reported Past Surgical History: Back Surgery, Cholecystectomy Additional Past Surgical History / Comment(s): 4& 5 lumbar. Infection after cholecystectomy Past Anesthesia/Blood Transfusion Reactions: No Reported Reaction Past Psychological History: No Psychological Hx Reported Smoking Status: Former smoker, Unknown if ever smoked Past Alcohol Use History: None Reported Past Drug Use History: Marijuana - Past Family History Brother(s) Family Medical History: Diabetes Mellitus Father Family Medical History: Cancer Additional Family Medical History / Comment(s): Pancreatic CA Mother Family Medical History: Diabetes Mellitus Medications and Allergies Home Medications Medication Instructions Recorded Confirmed Type Multivit-Min/FA/Lycopen/Lutein 1 each PO DAILY 10/22/19 02/28/22 History [Centrum Silver Tablet] RX: amLODIPine BESYLATE 5 mg PO DAILY 10/22/19 02/28/22 History Multivit-Min/Iron/Folic/Lutein 1 tab PO DAILY 02/28/22 02/28/22 History [Centrum Silver Women Tablet] RX: Ferrous Sulfate [Iron] 325 mg PO DAILY 02/28/22 02/28/22 History RX: Meclizine [Antivert] 25 mg PO QID PRN 02/28/22 02/28/22 History RX: diazePAM 10 mg PO Q12H PRN 02/28/22 02/28/22 History Allergies Allergy/AdvReac Type Severity Reaction Status Date / Time latex Allergy Rash/Hives Verified 02/28/22 15:44 codeine AdvReac Vomiting Verified 02/28/22 15:44 Physical Exam Vitals: Vital Signs Temp Pulse Resp BP Pulse Ox 02/28/22 17:04 64 18 162/85 98 02/28/22 15:00 56 L 18 152/80 96 02/28/22 13:55 98.6 F 50 L 18 159/83 100 Intake and Output 02/28/22 02/28/22 02/28/22 06:59 14:59 22:59 Other: Weight 68.492 kg -GENERAL: The patient is alert and oriented x3,-mild to moderate distress due to pain . Well developed, well nourished. HEENT: Pupils are round and equally reacting to light. EOMI. No scleral icterus. No conjunctival pallor. Normocephalic, atraumatic. No pharyngeal erythema. No thyromegaly. CARDIOVASCULAR: S1 and S2 present. No murmurs, rubs, or gallops. PULMONARY: Chest is clear to auscultation, no wheezing or crackles. ABDOMEN: Soft, nontender, nondistended, normoactive bowel sounds. No palpable organomegaly. MUSCULOSKELETAL: No joint swelling or deformity. EXTREMITIES: No cyanosis, clubbing, or pedal edema. -NEUROLOGICAL: Gross neurological examination did not reveal any focal deficits. cranial nerves are grossly intact. Sensation is intact, strength is 5/5 and she has some tenderness in the left temporal area. Meningeal signs are absent SKIN: No rashes. no petechiae. Results CBC & Chem 7: 02/28/22 15:18 02/28/22 15:18 Labs: Abnormal Lab Results - Last 24 Hours (Table) 02/28/22 Range/Units 15:18 Creatinine 0.50 L (0.52-1.04) mg/dL Assessment and Plan Assessment: Intractable vertigo associated with headache Hypertension Hyperlipidemia History of lap band Substance abuse with marijuana Plan: Continue with meclizine when necessary Pain management Neuro check Neurology consult Check ESR Labs and medication were reviewed.. Continue same treatment. Continue with symptomatic treatment. Resume home medication. Monitor lytes and vitals. DVT and GI prophylaxis. Further recommendations as per clinical course of the patient DVT prophylaxis: Subcutaneous heparin GI Prophylaxis: Pepcid PT/OT: Pending Prognosis is guarded
[2022-03-01] MEDS: METOCLOPRAMIDE 5 MG/ML 2 ML VIAL IVP SCH ×4 (04:02→18:11)
[2022-03-01] MEDS: amLODIPine 5 MG TAB PO SCH (09:13)
--- NOTE | 2022-03-01 10:55 | P.CNNES ---
History of Present Illness Consult date: 03/01/22 Requesting physician: German E Ray Reason for Consult: vertigo History of Present Illness: This is a 66-year-old woman who presented emergency department because of dizziness Patient stated that she's been having dizziness since this past Monday and the noticed upon waking up. She feels the room is spinning and knows that when she moves her head or body and is alleviated when the she rest. She had did have episode of nausea vomiting. She denies of any focal weakness, visual disturbance, any ringing in the ears or hearing loss. Denies any head trauma, fevers or sickness. She feels she is drastically doing better and she was able to walk on her own today without any issues. Some of the workup during this hospital visit consisted of: CBC with differential and chemistry panel is unremarkable. CT of the head is reported as negative unenhanced head CT scan. No change. I personally reviewed CT and agree with report. Review of Systems Review of system: The 12 point system was reviewed and apparent positive and negative per HPI. Past Medical History Past Medical History: CVA/TIA, Hyperlipidemia, Hypertension History of Any Multi-Drug Resistant Organisms: None Reported Past Surgical History: Back Surgery, Cholecystectomy Additional Past Surgical History / Comment(s): 4& 5 lumbar. Infection after cholecystectomy Past Anesthesia/Blood Transfusion Reactions: No Reported Reaction Past Psychological History: No Psychological Hx Reported Smoking Status: Former smoker Past Alcohol Use History: None Reported Past Drug Use History: Marijuana Additional Drug Use History / Comment(s): Patient uses marijuana at bedtime to help her sleep. - Past Family History Brother(s) Family Medical History: Diabetes Mellitus Father Family Medical History: Cancer Additional Family Medical History / Comment(s): Pancreatic CA Mother Family Medical History: Diabetes Mellitus Medications and Allergies Home Medications Medication Instructions Recorded Confirmed Type Multivit-Min/FA/Lycopen/Lutein 1 each PO DAILY 10/22/19 02/28/22 History [Centrum Silver Tablet] amLODIPine BESYLATE 5 mg PO DAILY 10/22/19 02/28/22 History Ferrous Sulfate [Iron] 325 mg PO DAILY 02/28/22 02/28/22 History Meclizine [Antivert] 25 mg PO QID PRN 02/28/22 02/28/22 History Multivit-Min/Iron/Folic/Lutein 1 tab PO DAILY 02/28/22 02/28/22 History [Centrum Silver Women Tablet] diazePAM 10 mg PO Q12H PRN 02/28/22 02/28/22 History Allergies Allergy/AdvReac Type Severity Reaction Status Date / Time latex Allergy Rash/Hives Verified 02/28/22 15:44 codeine AdvReac Vomiting Verified 02/28/22 15:44 Physical Examination - Vital Signs Vital Signs: Vital Signs Temp Pulse Pulse Resp BP BP Pulse Ox 03/01/22 04:00 97.6 F 52 L 14 155/66 95 03/01/22 00:00 97.4 F L 50 L 16 142/70 95 02/28/22 20:43 98.0 F 78 16 121/76 95 02/28/22 19:07 97.9 F 54 L 16 154/66 97 02/28/22 17:04 64 18 162/85 98 02/28/22 15:00 56 L 18 152/80 96 02/28/22 13:55 98.6 F 50 L 18 159/83 100 Intake and Output 02/28/22 03/01/22 03/01/22 22:59 06:59 14:59 Other: Voiding Method Bedpan Bedpan # Voids 1 Weight 68.492 kg GENERAL: The patient is laying in bed and is not in acute distress. CHEST: The heart rate is regular rate rhythm. No murmurs to auscultation. LUNG: Clear to auscultation bilaterally no wheezing noted throughout. Not labored breathing. ABDOMEN/GI: Bowel sounds present in all 4 quadrants. No tenderness to palpation throughout. NEUROLOGICAL: Higher mental function: The patient is awake, alert, oriented to self, place and time. Patient is following commands. No aphasia and no neglect. Cranial nerves: The pupils are round, equal and reactive to light and accomm odation. Visual vitale are full to confrontation throughout. Extraocular movement is intact no nystagmus is noted. Facial sensation is normal to touch throughout. The facial strength is normal throughout. Hearing is normal bilaterally to hand rub. Tongue is midline and moved [id number] without any difficulty. No dysarthria is noted. Shoulder shrug is normal bilaterally. Motor: The strength is 5 over 5 throughout. Normal tone and bulk. Cerebellum: Normal finger to nose heel to welsh bilaterally. Sensation: Sensation is normal to touch throughout. Reflexes (right/left): 2+ throughout. Plantars are downgoing bilaterally. Results - Laboratory Findings CBC and BMP: 02/28/22 15:18 02/28/22 15:18 Abnormal Lab Findings: Abnormal Labs 02/28/22 15:18 Creatinine 0.50 L Assessment and Plan Assessment: Acute vertigo and is seems peripheral---improving Hypertension Hyperlipidemia Plan: Patient received Valium in the ED Currently the patient is on meclizine 25 mg every 6 hours as needed as well as Reglan and Fioricet. Patient is feeling drastically better currently compared to her initial p resentation. From a neurologic perspective there is no focal deficits. If the patient continues to have dizziness or has any neurological deficit then recommend MRI Brain for now consider this as an outpatient and consider ENT if continues to have dizziness. Defer the rest of the medical management to the primary team. If the patient continues to be doing well by tomorrow then she is clear for discharge from a neurologic perspective. The plan was discussed with the patient and her nurse. Thank you for the consultation Time with Patient: Greater than 30
--- NOTE | 2022-03-01 11:29 | P.PN ---
Subjective This is a pleasant 66 years old female with past medical history of hypertension, hyperlipidemia and CVA/TIA, history of lap band with Dr. Todd. Her PCP is Dr. Maria Patient also has history of vertigo on 2019, that lasted 4 days at that time is been evaluated including Dr. Ho ENT service and resolved Yesterday she woke up in the morning and immediately felt like there was any with left temporal side pain, her pain felt like 9/10 in severity associated also some pain in the back of the head, patient denies blurred vision or double vision, yesterday she vomited a little bit in the morning, but not currently. He also denies any change in voice is or tinnitus, no abnormal discharge, no recent history of head trauma She tried several meclizine and pain medication to help so today she decided to come to the emergency room She denies other urinary symptoms, no chest pain or dyspnea or coughing, no vomiting today, no abdominal pain, she has little diarrhea yesterday which was. She is used to smoke and quit 3 months ago, no alcohol and chooses gummies of marijuana While here in the hospital her Vitas looks stable and patient is afebrile Lab profile is unremarkable, CBC, BMP, liver enzymes CT of the brain is negative for acute process, for example no tumor no sinusitis EKG: Sinus bradycardia at [address]-T changes Patient on admission acid scopolamine, IV Valium and reglan 03/01/2022 Patient significantly improved but not completely resolved, she denies headache today and her vertigo improved and may lead done in her right to the right side. Neurology on the case, CAT scan of the brain is negative, he has always normal. We are going to monitor for 24 hours and if she remains stable and improving we'll consider discharge tomorrow. No ENT coverage in this facility today, patient recommended to follow-up as an outpatient ( she already sees Dr. Ho as an outpatient for dizziness) Objective - Vital Signs Vital signs: Vital Signs Temp 97.6 F 03/01/22 04:00 Pulse 52 L 03/01/22 04:00 Resp 14 03/01/22 04:00 BP 155/66 03/01/22 04:00 Pulse Ox 95 03/01/22 04:00 FiO2 Intake & Output 1203/01/22 03/01/22 18:59 06:59 18:59 Weight 68.492 kg 68.492 kg Other: Voiding Method Bedpan # Voids 1 - Exam GENERAL: The patient is alert and oriented x3, not in any acute distress. Well developed, well nourished. HEENT: Pupils are round and equally reacting to light. EOMI. No scleral icterus. No conjunctival pallor. Normocephalic, atraumatic. No pharyngeal erythema. No thyromegaly. CARDIOVASCULAR: S1 and S2 present. No murmurs, rubs, or gallops. PULMONARY: Chest is clear to auscultation, no wheezing or crackles. ABDOMEN: Soft, nontender, nondistended, normoactive bowel sounds. No palpable organomegaly. MUSCULOSKELETAL: No joint swelling or deformity. EXTREMITIES: No cyanosis, clubbing, or pedal edema. NEUROLOGICAL: Gross neurological examination did not reveal any focal deficits. SKIN: No rashes. no petechiae. - Labs CBC & Chem 7: 02/28/22 15:18 02/28/22 15:18 Labs: Abnormal Lab Results - Last 24 Hours (Table) 02/28/22 Range/Units 15:18 Creatinine 0.50 L (0.52-1.04) mg/dL Assessment and Plan Assessment: Intractable vertigo associated with headache Hypertension Hyperlipidemia History of lap band Substance abuse with marijuana Plan: Continue with meclizine when necessary Pain management Neuro check Neurology consult Possible discharge in 24 hours if she keeps improving ENT referral as an outpatient Labs and medication were reviewed.. Continue same treatment. Continue with symptomatic treatment. Resume home medication. Monitor lytes and vitals. DVT and GI prophylaxis. Further recommendations as per clinical course of the patient DVT prophylaxis: Subcutaneous heparin GI Prophylaxis: Pepcid PT/OT: Pending Prognosis is guarded
[2022-03-02] MEDS: METOCLOPRAMIDE 5 MG/ML 2 ML VIAL IVP SCH ×3 (00:47→13:32)
[2022-03-02 06:11] VITALS: TEMP 97.8
[2022-03-02 08:56] VITALS: BP 125/60; PULSE 60; RESP 18
[2022-03-02] MEDS: amLODIPine 5 MG TAB PO SCH (08:57)
--- NOTE | 2022-03-02 23:33 | P.DS ---
Providers Date of admission: 02/28/22 16:28 Attending physician: German Bell MD Consults: 02/28/22 15:14 Consult Physician Urgent Consulting Provider: Rodney Pedraza Consult Reason/Comments: vertigo Do you want consulting provider notified?: Yes Primary care physician: Poli Maria [facility] Course: Diagnoses: Intractable vertigo associated with headache Hypertension Hyperlipidemia History of lap band Substance abuse with marijuana Hospital course: This is a pleasant 66 years old female with past medical history of hypertension, hyperlipidemia and CVA/TIA, history of lap band with Dr. Todd. Her PCP is Dr. Maria Patient also has history of vertigo on 2019, that lasted 4 days at that time is been evaluated including Dr. Ho ENT service and resolved This time she woke up in the morning and immediately felt like there was any with left temporal side pain, also she came with severe intractable vertigo. She received treatment in the ER with volume Reglan scopolamine and then also continued with meclizine when necessary and patient had been evaluated by neurologist. Patient was treated symptomatically. Yesterday she felt better but she was still having significant vertigo when she turns her head to the right side (to the degree she was avoiding turn in her head to the right side), today she was feeling even much better almost resolved with only some residual vertigo symptoms, however she couldn't sit up on the bed and walk by herself she could turn her head easily left and right with no difficulty or vertigo symptoms. I discussed the case with the neurologist here for discharge Patient also denies any other symptoms, no headache, no temporal pain or tenderness, no blurred vision, no tinnitus, no mouth problem, no headache. No lightheadedness, no chest pain or dyspnea, no urinary abdominal pain, no fever. Patient is agreeable to be discharged today patient states she can go home Problems and management plan were discussed with the patient and he verbalized understanding and acceptance Patient was found stable and can be discharged home in guarded prognosis however he needs follow-up as an outpatient. Patient was instructed to follow up with PCP Dr. Lexi gordon within one week and patient agrees Patient was instructed to follow up with a neurologist Dr. Regalado or Dr. Armendariz 1-2 weeks and she agrees, MRI of the brain is recommended if symptoms persistent. Patient also was instructed to follow up with ENT physician Dr. Ho in one week to whom she already has established care with. Patient states she will call and make her own appointment Upon patient request, she was given a prescription of Reglan which she thinks up her more than anything else. Physical exam Gen: patient is a AAOx3, no distress CVS: S1-S2, RRR, no murmur Lungs: B/L CTA, no wheezing Abdomen: soft, no distention, no tenderness, positive bowel sounds Extremity: no leg edema or induration Time spent more than 35 minute Plan - Discharge Summary Discharge Rx Participant: No New Discharge Prescriptions: New Metoclopramide [Reglan] 5 mg PO QID PRN 5 Days #20 tab PRN Reason: Vertigo Acetaminophen Tab [Tylenol] 325 mg PO Q6H PRN tab PRN Reason: Pain Continue amLODIPine BESYLATE 5 mg PO DAILY Multivit-Min/FA/Lycopen/Lutein [Centrum Silver Tablet] 1 each PO DAILY diazePAM 10 mg PO Q12H PRN PRN Reason: Anxiety Meclizine [Antivert] 25 mg PO QID PRN PRN Reason: dizziness Multivit-Min/Iron/Folic/Lutein [Centrum Silver Women Tablet] 1 tab PO DAILY Ferrous Sulfate [Iron] 325 mg PO DAILY Discharge Medication List Multivit-Min/FA/Lycopen/Lutein [Centrum Silver Tablet] 1 each PO DAILY 10/22/19 [History] amLODIPine BESYLATE 5 mg PO DAILY 10/22/19 [History] Ferrous Sulfate [Iron] 325 mg PO DAILY 02/28/22 [History] Meclizine [Antivert] 25 mg PO QID PRN 02/28/22 [History] Multivit-Min/Iron/Folic/Lutein [Centrum Silver Women Tablet] 1 tab PO DAILY 02/28/22 [History] diazePAM 10 mg PO Q12H PRN 02/28/22 [History] Acetaminophen Tab [Tylenol] 325 mg PO Q6H PRN tab 03/02/22 [Rx] Metoclopramide [Reglan] 5 mg PO QID PRN 5 Days #20 tab 03/02/22 [Rx] Follow up Appointment(s)/Referral(s): Pauol Aremndariz MD [REFERRING] - 1 Week (Neurologist, we recommend mri of the brain as outpatient. PLEASE CALL AND SCHEDULE APPOINTMENT. ) Juan Pablo Ho DO [Doctor of Osteopathic Medicine] - 1 Week (PLEASE CALL AND SCHEDULE APPOINTMENT.) Nadeem Regalado MD [Medical Doctor] - 1 Week (neurologist, we recommend mri of the brain as outpatient. PLEASE CALL AND SCHEDULE APPOINTMENT.) Poli Maria MD [Primary Care Provider] - 1-2 days (PLEASE CALL AND SCHEDULE APPOINTMENT.) Patient Instructions/Handouts: *Surgery [facility] - Scopalamine Patch Instructions, Metoclopramide (By mouth), Heart Healthy Diet (DC), Vertigo (DC), Acute Headache (DC) Activity/Diet/Wound Care/Special Instructions: heart healthy diet activity is restricted till you see your doctor Discharge/Stand Alone Forms: Work/School Release, Work/Release Restrictions Form, Work/School Release / Restrict Discharge Disposition: HOME SELF-CARE
== END 2022-03-02 14:51 | disposition home or self-care (01) | DRG 149 ==
LOC: EC 13:54 → 3SCARD 16:28
PROVIDERS: ADMIT Internal Medicine; ATTEND Internal Medicine
DX: R42 Dizziness and giddiness (principal); R51.9 Headache, unspecified; R00.1 Bradycardia, unspecified; E78.5 Hyperlipidemia, unspecified; F12.10 Cannabis abuse, uncomplicated; I10 Essential (primary) hypertension; Z86.73 Personal history of transient ischemic attack (TIA), and cerebral infarction without residual deficits; Z87.891 Personal history of nicotine dependence; Z98.84 Bariatric surgery status; Z88.5 Allergy status to narcotic agent; Z79.899 Other long term (current) drug therapy; Z91.040 Latex allergy status; Z80.0 Family history of malignant neoplasm of digestive organs; Z83.3 Family history of diabetes mellitus; Z90.49 Acquired absence of other specified parts of digestive tract
CPT/HCPCS: 36415; 70450; 80048; 80076; 83735; 85025; 85610; 85652; 85730; 93005; 96374; 96375; 99285

== ENCOUNTER → 2022-04-11 | Outpatient (CLI) | payer MEDICARE ==
--- NOTE | 2022-04-11 15:11 | P.HPBAR ---
Bariatric H&P - History & Physicial H&P Date: 04/11/22 History & Physicial: Visit/CC: Patient initial contact: Initial weight: 115.212 kg Initial weight in pounds: Height: 5 ft 3 in Initial BMI: Last weight: Current weight: 69.853 kg Current weight in pounds: Current BMI: [place] body weight (based on NIH guidelines): Excess body weight loss: The patient is a 66 year-old F who presents for Bariatric Assessment. Patient presents today for bariatric follow-up. She requested fill her band. Past Medical History Past Medical History: CVA/TIA, Hyperlipidemia, Hypertension History of Any Multi-Drug Resistant Organisms: None Reported Past Surgical History: Back Surgery, Cholecystectomy Additional Past Surgical History / Comment(s): 4& 5 lumbar. Infection after cholecystectomy Past Anesthesia/Blood Transfusion Reactions: No Reported Reaction Past Psychological History: No Psychological Hx Reported Smoking Status: Former smoker Past Alcohol Use History: None Reported Past Drug Use History: Marijuana Additional Drug Use History / Comment(s): Patient uses marijuana at bedtime to help her sleep. - Past Family History Brother(s) Family Medical History: Diabetes Mellitus Father Family Medical History: Cancer Additional Family Medical History / Comment(s): Pancreatic CA Mother Family Medical History: Diabetes Mellitus Surgical - Exam - General well developed, well nourished, no distress - Eyes PERRL - ENT normal pinna - Neck no masses - Respiratory normal expansion - Cardiovascular Rhythm: regular - Abdomen Abdomen: soft, non tender Bariatric Assessment & Plan Plan: Patient's LAP-BAND was just. She had 0.3 mL added to her band. She currently is 3.5 mL the band. She was ill drink water without difficulty. She'll follow- up in 4 weeks. Bariatric Checklist Checklist: Plan: Checklist: EGD: 1. Hiatal hernia: 2. H. Pylori: HgbA1c: Vitamin D: Smoking: Current every day smoker Primary care physician referral: [facility] Psychiatry clearance: Cardiology clearance: Sleep study: Diet journal: VTE risk score: VTE risk level: Rehab needs at discharge:
[2022-04-11 15:12] VITALS: BP 145/77; PULSE 76; TEMP 98.2; BMI 27.3
== END ==
LOC: BARWHC3 14:23
PROVIDERS: ATTEND Surgery
DX: E66.01 Morbid (severe) obesity due to excess calories (principal); Z46.51 Encounter for fitting and adjustment of gastric lap band; I10 Essential (primary) hypertension; E78.5 Hyperlipidemia, unspecified; Z86.718 Personal history of other venous thrombosis and embolism; Z91.040 Latex allergy status; Z88.5 Allergy status to narcotic agent; F17.200 Nicotine dependence, unspecified, uncomplicated; Z68.27 Body mass index [BMI] 27.0-27.9, adult
CPT/HCPCS: 99212

== ENCOUNTER → 2022-07-04 | Outpatient (CLI) | payer MEDICARE ==
[2022-07-04 13:38] VITALS: BP 163/79; PULSE 96; TEMP 98.1; BMI 25.0
--- NOTE | 2022-08-16 10:10 | P.HPBAR ---
Bariatric H&P - History & Physicial H&P Date: 07/04/22 History & Physicial: Visit/CC: lap band Patient initial contact: Initial weight: 115.212 kg Initial weight in pounds: 254.00 Height: 5 ft 3 in Initial BMI: 44.9 Last weight: Current weight: 63.957 kg Current weight in pounds: 141.00 Current BMI: 25.0 [place] body weight (based on NIH guidelines): 52.163 kg Excess body weight loss: 81.2% The patient is a 67 year-old F who presents for Bariatric Assessment. Patient's complaints of left upper quadrant pain. She is also had some minimal GERD. She's lost 13 pounds since her last visit. Past Medical History Past Medical History: CVA/TIA, Hyperlipidemia, Hypertension History of Any Multi-Drug Resistant Organisms: None Reported Past Surgical History: Back Surgery, Bariatric Surgery, Cholecystectomy Additional Past Surgical History / Comment(s): 4& 5 lumbar. Infection after cholecystectomy. lap band Past Anesthesia/Blood Transfusion Reactions: No Reported Reaction Past Psychological History: No Psychological Hx Reported Smoking Status: Former smoker Past Alcohol Use History: None Reported Past Drug Use History: Marijuana Additional Drug Use History / Comment(s): Patient uses marijuana at bedtime to h elp her sleep. - Past Family History Brother(s) Family Medical History: Diabetes Mellitus Father Family Medical History: Cancer Additional Family Medical History / Comment(s): Pancreatic CA Mother Family Medical History: Diabetes Mellitus Surgical - Exam Vital Signs Temp Pulse BP 98.1 F 96 163/79 07/04/22 13:35 07/04/22 13:35 07/04/22 13:35 - General well developed, well nourished - Eyes PERRL - ENT normal pinna - Neck no masses - Respiratory normal expansion - Cardiovascular Rhythm: regular - Abdomen Abdomen: soft, non tender Bariatric Assessment & Plan Plan: Patient's left upper quadrant pain appears to be repetitive in nature. Patient will have a computed tomography scan performed. To evaluate her left upper quadrant pain. Her GERD is minimal. Bariatric Checklist Checklist: Plan: Checklist: EGD: 1. Hiatal hernia: 2. H. Pylori: HgbA1c: Vitamin D: Smoking: Current every day smoker Primary care physician referral: [facility] Psychiatry clearance: Cardiology clearance: Sleep study: Diet journal: VTE risk score: VTE risk level: Rehab needs at discharge:
== END ==
LOC: BARWHC3 13:04
PROVIDERS: ATTEND Surgery
DX: E66.01 Morbid (severe) obesity due to excess calories (principal); K21.9 Gastro-esophageal reflux disease without esophagitis; R10.12 Left upper quadrant pain; F17.200 Nicotine dependence, unspecified, uncomplicated; Z86.718 Personal history of other venous thrombosis and embolism; E78.5 Hyperlipidemia, unspecified; I10 Essential (primary) hypertension; Z68.25 Body mass index [BMI] 25.0-25.9, adult; Z91.040 Latex allergy status; Z88.5 Allergy status to narcotic agent
CPT/HCPCS: 99211

== ENCOUNTER → 2022-08-15 | Outpatient (CLI) | payer MEDICARE ==
[2022-08-15 13:03] VITALS: BP 169/91; PULSE 76; TEMP 98.9; BMI 23.7
--- NOTE | 2022-08-15 15:39 | FL ---
EXAMINATION TYPE: FL barium swallow DATE OF EXAM: 08/15/2022 3:23 PM COMPARISON: CT abdomen and pelvis 07/18/2022 CLINICAL INDICATION:Female, 67 years old with history of R1310 DYSPHAGIA; PHH, history of lap band ding rgery 22 years ago. TECHNIQUE: The procedure was explained and patient history elicited. All patient questions were ans wered prior to start of procedure. Multiple spot fluoroscopic images of the esophagus were obtained a fter the oral ingestion of liquid barium as the contrast agent. Fluoroscopic time: 25 seconds Fluoroscopic images: 110 Total DAP: 79.15 mGy FINDINGS: The esophagus demonstrates normal primary and secondary peristalsis. The esophageal mucosa is smooth without evidence of focal stricture, ulceration, or abnormal outpouching. Lap band appears to be in appropriate position at the GE junction. There is hold up of contrast in the distal esophagus at site of lap band with some contrast coursing through the lap band into the stomach during the course of e xamination. Distention of the distal portion esophagus is identified which increases in the supine po sition. No gastroesophageal reflux disease was identified. No hiatal hernia identified. 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 Findings suggest lap band may be too tight. Consider adjustment.
--- NOTE | 2022-08-16 08:45 | P.HPBAR ---
Bariatric H&P - History & Physicial H&P Date: 08/15/22 History & Physicial: Visit/CC: CT F/U Patient initial contact: Initial weight: 115.212 kg Initial weight in pounds: 254.00 Height: 5 ft 3 in Initial BMI: 44.9 Last weight: Current weight: 60.781 kg Current weight in pounds: 134.00 Current BMI: 23.7 [place] body weight (based on NIH guidelines): 52.163 kg Excess body weight loss: 86.3% The patient is a 67 year-old F who presents for Bariatric Assessment. Patient presents today for bariatric follow-up. Patient states she's had some increased reflux. She denies any dysphagia or vomiting. Past Medical History Past Medical History: CVA/TIA, Hyperlipidemia, Hypertension History of Any Multi-Drug Resistant Organisms: None Reported Past Surgical History: Back Surgery, Bariatric Surgery, Cholecystectomy Additional Past Surgical History / Comment(s): 4& 5 lumbar. Infection after cholecystectomy. lap band Past Anesthesia/Blood Transfusion Reactions: No Reported Reaction Past Psychological History: No Psychological Hx Reported Smoking Status: Former smoker Past Alcohol Use History: None Reported Past Drug Use History: Marijuana Additional Drug Use History / Comment(s): Patient uses marijuana at bedtime to help her sleep. - Past Family History Brother(s) Family Medical History: Diabetes Mellitus Father Family Medical History: Cancer Additional Family Medical History / Comment(s): Pancreatic CA Mother Family Medical History: Diabetes Mellitus Surgical - Exam Vital Signs Temp Pulse BP 98.9 F 76 169/91 08/15/22 13:00 08/15/22 13:00 08/15/22 13:00 - General well developed, well nourished, no distress - Eyes PERRL - ENT normal pinna - Neck no masses - Respiratory normal expansion - Cardiovascular Rhythm: regular - Abdomen Abdomen: soft, non tender Bariatric Assessment & Plan Plan: Possible GERD related to LAP-BAND. Patient will have a esophagram performed to evaluate for possible hiatal hernia or for band is too tight. Patient denies any significant dysphagia at this point. Bariatric Checklist Checklist: Plan: Checklist: EGD: 1. Hiatal hernia: 2. H. Pylori: HgbA1c: Vitamin D: Smoking: Current every day smoker Primary care physician referral: [facility] Psychiatry clearance: Cardiology clearance: Sleep study: Diet journal: VTE risk score: VTE risk level: Rehab needs at discharge:
== END ==
LOC: BARWHC3 12:39
PROVIDERS: ATTEND Surgery
DX: E66.01 Morbid (severe) obesity due to excess calories (principal); R13.10 Dysphagia, unspecified; Z68.23 Body mass index [BMI] 23.0-23.9, adult; Z98.84 Bariatric surgery status; K21.9 Gastro-esophageal reflux disease without esophagitis; Z86.718 Personal history of other venous thrombosis and embolism; E78.5 Hyperlipidemia, unspecified; I10 Essential (primary) hypertension; Z46.51 Encounter for fitting and adjustment of gastric lap band; Z91.040 Latex allergy status; Z88.5 Allergy status to narcotic agent; F17.200 Nicotine dependence, unspecified, uncomplicated
CPT/HCPCS: 74220; G0463; 99211

== ENCOUNTER → 2022-08-22 | Outpatient (CLI) | payer MEDICARE ==
[2022-08-22 14:05] VITALS: BP 131/81; PULSE 84; TEMP 98.3; BMI 23.6
== END ==
LOC: BARWHC3 13:26
PROVIDERS: ATTEND Surgery
DX: E66.01 Morbid (severe) obesity due to excess calories (principal); F17.200 Nicotine dependence, unspecified, uncomplicated; Z68.23 Body mass index [BMI] 23.0-23.9, adult; Z91.040 Latex allergy status; Z88.5 Allergy status to narcotic agent
CPT/HCPCS: 99212

== ENCOUNTER → 2022-11-28 | Outpatient (CLI) | payer MEDICARE ==
[2022-11-28 13:49] VITALS: BP 184/69; PULSE 76; TEMP 98.2; BMI 25.4
--- NOTE | 2022-12-14 09:12 | P.HPBAR ---
Bariatric H&P - History & Physicial H&P Date: 11/28/22 History & Physicial: Visit/CC: lap band Patient initial contact: Initial weight: 115.212 kg Initial weight in pounds: 254.00 Height: 5 ft 3 in Initial BMI: 44.9 Last weight: Current weight: 65.317 kg Current weight in pounds: 144.00 Current BMI: 25.4 [place] body weight (based on NIH guidelines): 52.163 kg Excess body weight loss: 79.1% The patient is a 67 year-old F who presents for Bariatric Assessment. This is a 67-year-old female presents today for bariatric follow-up. Patient requesting a fill of her LAP-BAND she currently feels hungry. She's had an 11 pound weight gain since her last visit. Patient is interested panniculectomy. 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 Past Medical History Past Medical History: CVA/TIA, Hyperlipidemia, Hypertension History of Any Multi-Drug Resistant Organisms: None Reported Past Surgical History: Back Surgery, Bariatric Surgery, Cholecystectomy Additional Past Surgical History / Comment(s): 4& 5 lumbar. Infection after cholecystectomy. lap band Past Anesthesia/Blood Transfusion Reactions: No Reported Reaction Past Psychological History: No Psychological Hx Reported Smoking Status: Former smoker Past Alcohol Use History: None Reported Past Drug Use History: Marijuana Additional Drug Use History / Comment(s): Patient uses marijuana at bedtime to help her sleep. - Past Family History Brother(s) Family Medical History: Diabetes Mellitus Father Family Medical History: Cancer Additional Family Medical History / Comment(s): Pancreatic CA Mother Family Medical History: Diabetes Mellitus Surgical - Exam Vital Signs Temp Pulse BP 98.2 F 76 184/69 11/28/22 13:42 11/28/22 13:42 11/28/22 13:42 - General well developed, well nourished, no distress - Eyes PERRL - ENT normal pinna, normal mucosa - Neck no masses - Respiratory normal expansion - Cardiovascular Rhythm: regular - Abdomen Well-formed panniculus with evidence of chronic skin irritation Abdomen: soft, non tender Bariatric Assessment & Plan Plan: Patient LAP-BAND was adjusted. She'll 0.3 mL in the band. She currently has 4.1 mL added. She will follow-up in 4 weeks. The patient has an excellent understanding panniculectomy. Bariatric Checklist Checklist: Plan: Checklist: EGD: 1. Hiatal hernia: 2. H. Pylori: HgbA1c: Vitamin D: Smoking: Current every day smoker Primary care physician referral: Teodora Psychiatry clearance: Cardiology clearance: Sleep study: Diet journal: VTE risk score: VTE risk level: Rehab needs at discharge:
== END ==
LOC: BARWHC3 13:10
PROVIDERS: ATTEND Surgery
DX: E66.01 Morbid (severe) obesity due to excess calories (principal); E78.5 Hyperlipidemia, unspecified; I10 Essential (primary) hypertension; Z46.51 Encounter for fitting and adjustment of gastric lap band; Z98.84 Bariatric surgery status; Z87.891 Personal history of nicotine dependence; Z68.25 Body mass index [BMI] 25.0-25.9, adult; Z91.040 Latex allergy status; Z88.5 Allergy status to narcotic agent; Z79.899 Other long term (current) drug therapy
CPT/HCPCS: 99212

== ENCOUNTER → 2023-07-10 | Outpatient (CLI) | payer MEDICARE ==
--- NOTE | 2023-07-10 12:09 | MR ---
EXAMINATION TYPE: MR brain and iac wo/w con DATE OF EXAM: 07/10/2023 COMPARISON: 04/27/2010 HISTORY: Dizziness and giddiness. TECHNIQUE: Multiplanar, multisequence images of the brain and brainstem is performed without and with IV contras t, utilizing 6.5 mL intravenous Gadavist . FINDINGS: Diffusion weighted images demonstrate no evidence of a recent infarct or other diffusion ab normality. There is no extra-axial fluid collection or significant white matter signal abnormality. The ventricular system and cisternal spaces are normal in size and appearance. The brain volume is age appropriate. There is no evidence of cerebellopontine angle mass or acoustic schwannoma. There is mild changes of chronic mastoiditis greater on the right. Scattered focal areas of abnormal signal in white matter are nonspecific. Midline structures demonstrate normal morphology. The craniocervical junction appears within normal limits. Post contrast images demonstrate no abnormal enhancement. The dural venous sinuses appear pa tent. Mild changes of chronic sinusitis and the globes are intact. Partially empty sella turcica. IMPRESSION: 1. No evidence of cerebellopontine angle mass or acoustic schwannoma. 2. Mild nonspecific white matter changes most typical of remote microvascular ischemia.
== END | disposition home or self-care (01) ==
LOC: RADMRIMAIN 08:01
PROVIDERS: ATTEND Otolaryngology
DX: G93.89 Other specified disorders of brain (principal); I67.82 Cerebral ischemia; R42 Dizziness and giddiness
CPT/HCPCS: 70553; A9585